=== PATIENT | female | born 1945 | race Caucasian/White ===

== ENCOUNTER 2020-04-25 09:37 | Outpatient (REF) | payer MEDICARE, OTHER, SELFPAY ==
[2020-04-25 10:35] LABS: Basophils Percent Auto 0.8 % (0-2); Eosinophils Absolute Auto 0.1 X10*3/uL (0.0-0.4); Eosinophils Percent Auto 3.2 % (0-4); Hematocrit 43.5 % (37-47); Hemoglobin 14.5 g/dl (12.0-16.0); Imm Gran Abs Auto 0.01 X10*3/uL (0.00-0.03); Imm Gran Pct Auto 0.3 % (0.0-0.4); Lymphocytes Absolute Auto 0.6 X10*3/uL (1.2-4.9); MANUAL DIFF FLAG SCAN; Mean Corpuscular HGB Conc 33.3 g/dl (31.0-35.0); Mean Corpuscular Hemoglobin 29.7 pg (27.0-33.0); Mean Corpuscular Volume 89.1 fL (80-98); Mean Platelet Volume 9.7 fL (9.4-12.3); Monocytes Absolute Auto 0.3 X10*3/uL (0.1-1.2); Monocytes Percent Auto 8.2 % (2-11); Neutrophils Absolute Auto 2.8 X10*3/uL (2.0-8.3); Neutrophils Percent Auto 72.5 % (45-73); Platelet Count 193 X10*3/uL (160-400); Red Blood Count 4.88 X10*6/uL (4.20-5.50); Red Cell Distribution Width 12.5 % (11.0-16.0); SCAN SMEAR FLAG 1; White Blood Count 3.8 X10*3/uL (4.8-10.8)
[2020-04-25 10:39] LABS: Glucose Urine UA NEG (NEG); Leukocyte Esterase Urine NEG (NEG); Nitrite Urine NEG (NEG); PH 7.5 (5.0-8.0); Urine Blood NEG (NEG); Urine Ketones NEG (NEG); Urine Protein TRACE MG/DL (NEG-TRACE)
[2020-04-25 10:44] LABS: Appearance Urine CLEAR; Color Urine YELLOW
[2020-04-25 10:51] LABS: RBC Urine 0-2 /HPF (0); Squamous Epithelial Cell Urine 2+ /LPF; WBC Urine 0-2 /HPF (0-4)
[2020-04-25 11:00] LABS: SLIDE REVIEW VERIFIED
[2020-04-25 11:17] LABS: Alanine Aminotransferase 26 U/L (0-31); Albumin Level 4.3 g/dL (3.5-5.0); Alkaline Phosphatase 55 U/L (39-117); Anion Gap 12 (12-20); Aspartate Amino Transferase 21 U/L (5-31); Bilirubin Total 0.5 mg/dL (0.0-1.0); Blood Urea Nitrogen 15 mg/dL (9-16); Calcium 8.7 mg/dL (8.4-10.2); Carbon Dioxide 29 mmol/L (22-29); Chloride 99 mmol/L (96-108); Cholesterol 156 mg/dL; Estimated Glomerular Filt Rate > 60; Glucose Fasting 123 mg/dL (60-99); HDL Cholesterol 42 mg/dL; LDL Cholesterol Calculated 61 mg/dl; Sodium 136 mmol/L (135-145); Total Protein 6.8 g/dL (6.5-8.0); Triglycerides 269 mg/dL
[2020-04-25 11:24] LABS: T4 Thyroxine 9.2 ug/dL (4.5-12.0); Thyroid Stimulating Hormone 3.58 mIU/mL (0.32-4.0); Vitamin D 25-OH Total 22.5 ng/mL (>30)
[2020-04-25 13:23] LABS: Folate 19.4 ng/mL (> or = 4.0); Vitamin B12 1078 pg/mL (200-900)
== END 2020-04-25 09:38 | disposition home or self-care (01) ==
LOC: HO.LAB 09:37
PROVIDERS: PCP Internal Medicine; Visit Provider Internal Medicine
DX: E03.9 Hypothyroidism, unspecified (principal); E78.00 Pure hypercholesterolemia, unspecified; I10 Essential (primary) hypertension; M81.0 Age-related osteoporosis without current pathological fracture; F41.9 Anxiety disorder, unspecified
CPT/HCPCS: 36415; 80053; 80061; 81001; 82306; 82607; 82746; 84436; 84443; 85025

== ENCOUNTER 2020-10-17 09:10 | Outpatient (REF) | payer MEDICARE, OTHER, SELFPAY ==
[2020-10-17 10:44] LABS: Alanine Aminotransferase 31 U/L (0-31); Albumin Level 4.3 g/dL (3.5-5.0); Alkaline Phosphatase 64 U/L (39-117); Anion Gap 12 (12-20); Aspartate Amino Transferase 21 U/L (5-31); Bilirubin Total 0.7 mg/dL (0.0-1.0); Blood Urea Nitrogen 21 mg/dL (9-16); Calcium 9.4 mg/dL (8.4-10.2); Carbon Dioxide 27 mmol/L (22-29); Chloride 104 mmol/L (96-108); Estimated Glomerular Filt Rate > 60; Glucose Random 110 mg/dL (60-115); Potassium 4.9 mmol/L (3.3-5.1); Sodium 138 mmol/L (135-145); Total Protein 6.7 g/dL (6.5-8.0)
[2020-10-17 10:59] LABS: Estimated Average Glucose 126 mg/dL
[2020-10-17 11:06] LABS: Free T4 (Free Thyroxine) 1.18 ng/dL (0.71-1.85); Thyroid Stimulating Hormone 1.15 uIU/mL (0.32-4.0)
== END 2020-10-17 09:11 | disposition home or self-care (01) ==
LOC: HO.LAB 09:10
PROVIDERS: PCP Internal Medicine; Visit Provider Internal Medicine
DX: E03.9 Hypothyroidism, unspecified (principal); R73.02 Impaired glucose tolerance (oral)
CPT/HCPCS: 36415; 80053; 83036; 84439; 84443

== ENCOUNTER 2020-11-27 13:08 | Outpatient (REF) | payer MEDICARE, OTHER, SELFPAY ==
--- NOTE | ~2020-11-27 | MM_ITS ---
EXAMINATION: MM DIAGNOSTIC DIGITAL BREAST TOMOSYNTHESIS, BILATERAL CLINICAL INFORMATION: Remote history right lumpectomy for breast cancer. Probable benign punctate round calcifications posterior central inferior right breast for follow-up. Due for yearly. COMPARISON: Mammography: 11/23/2019, 03/18/2019, 09/17/2018, 09/09/2018 (BI-RADS 0), 09/04/2017, 08/22/2016 TECHNIQUE: Digital breast tomosynthesis is performed in both the craniocaudal and mediolateral oblique views along with computer-aided detection (CAD). Synthesized 2D images are generated from the tomosynthesis. Additional views are obtained: Right MLO, magnification right CC x2, magnification right ML x2, magnification right MLO. Images repeated due to motion which persisted on additional views. Exam tailored to patient capabilities. FINDINGS: There are scattered areas of fibroglandular density (ACR BI-RADS breast composition Category b). Parenchymal pattern is similar to prior studies. There is no developing density or interval mass or architectural abnormality. The left breast is unremarkable. There are post therapy changes again seen on the right with reduced breast size and minor scarring. Scattered right calcifications are similar to prior studies with no interval increased calcifications or interval grouping or pleomorphic calcifications. Results are provided to the patient at time of visit by the technologist. MM/MM tomosynthesis diagnostic BI IMPRESSION: 1. No mammographic evidence of malignancy. 2. Post therapy changes right breast. No abnormal calcifications. ASSESSMENT: BI-RADS 2: Benign RECOMMENDATION: Routine annual mammography screening. This patient's information was entered into a reminder system with a target due date for their next mammogram.
== END 2020-11-27 13:09 | disposition home or self-care (01) ==
LOC: HO.MAMMO 13:08
PROVIDERS: PCP Internal Medicine; Visit Provider Internal Medicine
DX: R92.1 Mammographic calcification found on diagnostic imaging of breast (principal)
CPT/HCPCS: 77062; 77066

== ENCOUNTER 2021-04-29 23:47 | Emergency (ER) | payer MEDICARE, OTHER, SELFPAY ==
--- NOTE | ~2021-04-29 | CT_ITS ---
EXAMINATION: HEAD CT WITHOUT CONTRAST CERVICAL SPINE CT WITHOUT CONTRAST CLINICAL INFORMATION: Fall. COMPARISON: None. TECHNIQUE: Contiguous axial imaging of the head was performed without the administration of IV contrast. Axial multidetector volumetric images were also performed through the cervical spine without intravenous contrast. Multiplanar reconstructed images in coronal and sagittal orientations were submitted. This CT examination was performed using dose optimization techniques as appropriate, variously including the following: *Automated exposure control *Adjustment of mA and/or kV according to patient size (this includes techniques or standardized protocols for targeted exams where dose is matched to indication/reason for exam; i.e. extremities or head) *Use of iterative reconstruction technique DOSE: 861 mGy-cm FINDINGS: HEAD: There is no evidence of acute intracranial hemorrhage or territorial infarction. No abnormal mass-effect or midline shift. No extra-axial fluid collections. Buenrostro to white matter differentiation is well preserved. The ventricles are normal in size and configuration. There is no abnormal attenuation within the brain parenchyma. Calcific atherosclerosis is present within the cavernous and supraclinoid segments of the internal carotid arteries. There is a skin laceration in the right supraorbital frontal region overlying the frontal bone. No underlying fractures. The sinuses and mastoid air cells are clear. CERVICAL SPINE: Vertebral body heights are normal. No fractures of the vertebral bodies or posterior elements. Vertebral alignment is normal. No acute subluxation. There is slight chronic anterolisthesis of C3 on C4, C5-C6, and C7 on T1 correlate with the facet arthropathy at these levels. Degenerative osteophytes and sclerosis are present at the atlantodental articulation, though normal alignment is maintained. Craniocervical junction is normal. There is ankylosis of the C2-C3 and C3-C4 vertebral bodies and posterior elements. Minimal degenerative disc disease in the cervical spine is characterized by endplate and uncovertebral osteophytes primarily. There is marked multilevel facet arthropathy which is most notable on the right at C4-C5 and C7-T1 and on the left at C5-C6. And facet osteophytes produce neural foraminal encroachment on the right at C4-C5. Central canal is patent. No significant paravertebral soft tissue swelling. Atherosclerotic calcifications are present in the carotid arteries. Imaged portions of the lung apices are clear. CT/CT cervical spine wo con IMPRESSION: 1. No acute intracranial pathology. Skin laceration of the right frontal scalp. No underlying fractures. 2. No acute fracture or malalignment in the cervical spine. Marked multilevel facet arthropathy with ankylosis of C2-C3 and C3-C4.
[2021-04-29 23:51] VITALS: BP 201/95; PULSE 80; RESP 18; TEMP 36.7; O2SAT 96; BMI 22.4
[2021-04-30 00:25] VITALS: BP 203/90; PULSE 73; RESP 16; O2SAT 94
--- NOTE | 2021-04-30 00:26 | PC.NURSE ---
BP 203/90 notified
--- NOTE | 2021-04-30 00:30 | ED_ITS ---
HPI - Fall General Chief Complaint: Fall Stated Complaint: Fall/Head Lac Time Seen by Provider: 04/29/21 23:57 Source: patient Mode of arrival: ambulatory Limitations: no limitations History of Present Illness HPI Narrative: Patient comes emergency room complaining of a mechanical fall and laceration to the forehead. Patient states she got out of bed, started walking, her feet got stuck in the cats and the dog's beds on the floor, patient tripped and hit her head on the corner of a case. Patient denies loss of consciousness, patient is not on blood thinners, only takes aspirin. Patient denies neck pain, no headache. Patient only complaining of localized pain. Related Data Home Medications Medication Instructions Recorded Confirmed aspirin 81 mg tablet,delayed 81 mg PO DAILY 06/14/20 09/03/20 release (Adult Aspirin Regimen) bupropion HCl 150 mg tablet,12 hr 150 mg PO QAM 06/14/20 09/03/20 sustained-release (Wellbutrin SR) cetirizine 10 mg capsule (Allergy mg PO DAILY PRN cap 06/14/20 09/03/20 Relief (cetirizine)) ipratropium bromide 21 mcg (0.03 2 spray INTRANASAL BID-TID PRN 06/14/20 09/03/20 %) nasal spray Previous Rx's Medication Instructions Recorded Synthroid 88 mcg tablet 88 mcg PO QAM #90 tab NS 08/15/20 (levothyroxine) alendronate 70 mg tablet 70 mg PO QWEEK #12 tab 02/04/21 irbesartan 150 1 tab PO DAILY #90 tab 02/04/21 mg-hydrochlorothiazide 12.5 mg tablet propranolol 20 mg tablet 20 mg PO BID #180 tab 02/11/21 simvastatin 40 mg tablet 40 mg PO QPM #90 tab 02/11/21 Allergies Allergy/AdvReac Type Severity Reaction Status Date / Time lisinopril [LISINOPRIL] Allergy Unknown COUGH Verified 02/19/21 14:31 penicillin V Allergy Unknown stomach Verified 02/19/21 14:31 upset penicillin G [Penicillin G] AdvReac Unknown NAUSEA Verified 02/19/21 14:31 ABDOMINAL PAIN Review of Systems Review of Systems: Constitutional : No Weight loss, No Fever, No Chills, No Night Sweats, No Fatigue, No Malaise ENT/Mouth : No Hearing loss, No Ear Pain, No Nasal Congestion, No Sinus Pain, No Hoarseness, No sore throat, No Rhinorrhea, No Swallowing Difficulty Eyes: No Eye Pain, No Swelling, No Redness, No Foreign Body, No Discharge, No Vision Changes Cardiovascular : No Chest Pain, No SOB, No Dyspnea on Exertion, No Orthopnea, No Edema, No Palpitations Respiratory : No Cough, No Sputum, No Wheezing, No Smoke Exposure, No Dyspnea Gastrointestinal : No Nausea, No Vomiting, No Diarrhea, No Constipation, No abdominal Pain, No Hematochezia, No Melena Genitourinary : no irregular bleeding, No Dysuria, No Urinary Frequency, No Hematuria, No Urinary Incontinence, No Urgency, No Flank Pain, No Urinary Flow Changes, No Hesitancy Musculoskeletal : No joint pain, No Myalgias, No Joint Swelling Skin : Laceration to the forehead Neuro : No Weakness, No Numbness, No Paresthesias, No Loss of Consciousness, No Dizziness, No Headache Psych : No Anxiety/Panic, No Depression, No SI/HI/AH/VH, No Social Issues, Heme/Lymph: No Bruising, No Bleeding,No Lymphadenopathy Endocrine : No Polyuria, No Polydipsia, No Temperature Intolerance [facility] Past Medical History Medical History Anxiety Carotid stenosis Carpal tunnel syndrome COPD (chronic obstructive pulmonary disease) History of breast cancer Hypercholesterolemia Hypertension Hypothyroid Impaired glucose tolerance Osteoporosis Peripheral vascular disease Tobacco abuse Vitamin D deficiency Surgical History History of breast biopsy History of carotid endarterectomy History of cataract surgery S/P dilation and curettage Family History Family History (Updated 06/08/20 @ 14:08 by Bettie Rodriguez Gretchen) Father Hypertension Mother Stroke Diabetes Hypertension CVD (cardiovascular disease) Brother No problems noted. Sister No problems noted. Social History Social History (Updated 09/03/20 @ 17:16 by Marlena Eubanks CMA) Housing: House Alcohol intake: never Patient Tobacco Use Status: Current everyday Tobacco user Tobacco use type: Cigarette Cigarettes Per Day: 13 e-Cigarette/Vaping Use: Never Used Second Hand Smoke Exposure: No Advance Directives: No service: No Current occupational status: retired Physical Exam Vital Signs: Vital Signs: Last Vital Signs Temp 98.5 F 04/30/21 01:10 Pulse 62 04/30/21 01:42 Resp 16 04/30/21 01:42 BP 206/77 H 04/30/21 01:42 Pulse Ox 96 04/30/21 01:42 Body Mass Index 22.4 Const: Other: Appearance: Alert. Oriented X3. No acute distress. Eyes: Pupils equal, round and reactive to light. ENT: Pharynx normal. Neck: Normal inspection. Neck supple. No lymph nodes noted. No palpable step- offs, normal range of motion, no pain to palpation over cervical spine and lateral sides of neck CVS: Normal heart rate and rhythm. Pulses normal. Normal S1 and S2 Respiratory: No respiratory distress. Breath sounds normal. No Wheezing. No rales Abdomen: Soft and nontender. No rigidity. No distention. Skin: Skin warm and dry. Patient has a 4 cm laceration to the right side of the forehead Extremities: No lower extremity edema. No lower extremity edema. No Lacerations. No Rash Neuro: Oriented X 3. No motor deficit. No sensory deficit. Moving all extermities. No slurred speech. Course Course Course Narrative: Patient received 11 stitches, tolerated well the procedure. Before discharge, blood pressure was recheck, still 205 systolic. Patient was given 1 dose of p.o. labetalol, recheck blood pressure pending Patient's blood pressure 168/82, patient asymptomatic. Patient instructed to follow-up with the primary care physician and discuss any changes to her blood pressure medication Procedures Laceration Laceration 1: Site: face Side (If applicable): right Size (cm): 4 Description: stellate and irregular Depth: simple, single layer Local Anesthetic: lidocaine 1% Amount of anesthesia used (mL): 7 Pre-repair: wound explored Skin layer closed with: nylon Size (cm): 5-0 Number of sutures: 11 Technique: simple, interrupted MDM - Fall Imaging Data Head and cervical spine CT: Radiologist's impression: HEAD: There is no evidence of acute intracranial hemorrhage or territorial infarction. No abnormal mass-effect or midline shift. No extra-axial fluid collections.? Buenrostro to white matter differentiation is well preserved. The ventricles are normal in size and configuration. ? There is no abnormal attenuation within the brain parenchyma. Calcific atherosclerosis is present within the cavernous and supraclinoid segments of the internal carotid arteries. There is a skin laceration in the right supraorbital frontal region overlying the frontal bone. No underlying fractures. The sinuses and mastoid air cells are clear. CERVICAL SPINE: Vertebral body heights are normal. No fractures of the vertebral bodies or posterior elements. Vertebral alignment is normal. No acute subluxation. There is slight chronic anterolisthesis of C3 on C4, C5-C6, and C7 on T1 correlate with the facet arthropathy at these levels. Degenerative osteophytes and sclerosis are present at the atlantodental articulation, though normal alignment is maintained. Craniocervical junction is normal. There is ankylosis of the C2-C3 and C3-C4 vertebral bodies and posterior elements. Minimal degenerative disc disease in the cervical spine is characterized by endplate and uncovertebral osteophytes primarily. There is marked multilevel facet arthropathy which is most notable on the right at C4-C5 and C7-T1 and on the left at C5-C6. And facet osteophytes produce neural foraminal encroachment on the right at C4-C5. Central canal is patent. No significant paravertebral soft tissue swelling. Atherosclerotic calcifications are present in the carotid arteries. Imaged portions of the lung apices are clear. CT/CT cervical spine wo con IMPRESSION: 1. No acute intracranial pathology. Skin laceration of the right frontal scalp. No underlying fractures. 2. No acute fracture or malalignment in the cervical spine. Marked multilevel facet arthropathy with ankylosis of C2-C3 and C3-C4. Discharge Plan Discharge Clinical Impression: Hypertension Fall Qualifiers: Encounter type: initial encounter Qualified Code(s): W19.XXXA - Unspecified fall, initial encounter Laceration of face Qualifiers: Encounter type: initial encounter Qualified Code(s): S01.81XA - Laceration without foreign body of other part of head, initial encounter Patient Disposition: Home, Self-Care Instructions: Facial Laceration (ED) Additional Instructions: Your stitches need to be removed in 7-10 days. If you have any signs of infection such as redness, pus drainage, fever or chills, please return to em ergency room. Please follow-up with your primary care physician tomorrow, your blood pressure is high, you may need adjustment in your blood pressure medications. Please follow-up with your primary care physician tomorrow. If you have any worsening or new symptoms, please return to the emergency room or call 911 Prescriptions: No Action levothyroxine [Synthroid] 88 mcg tablet 88 mcg PO QAM Qty: 90 RF: 3 alendronate 70 mg tablet 70 mg PO QWEEK Qty: 12 RF: 3 irbesartan-hydrochlorothiazide 150-12.5 mg tablet 1 tab PO DAILY Qty: 90 RF: 2 propranolol 20 mg tablet 20 mg PO BID Qty: 180 RF: 2 simvastatin 40 mg tablet 40 mg PO QPM Qty: 90 RF: 2 ipratropium bromide 0.03 % spray,non-aerosol 2 spray intranasal BID-TID PRNRF: 0 Allergy Relief (cetirizine) 10 mg capsule PO DAILY PRNRF: 0 aspirin [Adult Aspirin Regimen] 81 mg tablet,delayed release (DR/EC) 81 mg PO DAILY RF: 0 bupropion HCl [Wellbutrin SR] 150 mg tablet sustained-release 12 hr 150 mg PO QAM RF: 0
[2021-04-30 01:10] VITALS: BP 204/92; PULSE 76; RESP 16; TEMP 36.9; O2SAT 96
[2021-04-30] MEDS: Lidocaine HCl 1%/Epi 1:100,000 20 ML VIAL INFILTRATI (01:10)
--- NOTE | 2021-04-30 01:12 | PC.NURSE ---
BP recheck per MD BP: 204/92 MD at bedside and aware of BP new orders to follow
[2021-04-30 01:17] VITALS: BP 204/92; PULSE 74
[2021-04-30] MEDS: Labetalol HCL 100 MG TABLET PO (01:17)
[2021-04-30 01:42] VITALS: BP 206/77; PULSE 62; RESP 16; O2SAT 96
[2021-04-30 01:51] VITALS: BP 168/82
== END 2021-04-30 01:58 | disposition home or self-care (01) ==
PROVIDERS: Emergency Provider Emergency Medicine; PCP Internal Medicine
DX: S01.81XA Laceration without foreign body of other part of head, initial encounter (principal); I10 Essential (primary) hypertension; J44.9 Chronic obstructive pulmonary disease, unspecified; W01.0XXA Fall on same level from slipping, tripping and stumbling without subsequent striking against object, initial encounter; Y93.01 Activity, walking, marching and hiking; Y92.009 Unspecified place in unspecified non-institutional (private) residence as the place of occurrence of the external cause; Y99.9 Unspecified external cause status
CPT/HCPCS: 12013; 70450; 72125; 99284

== ENCOUNTER 2021-04-30 03:31 | Emergency (ER) | payer MEDICARE, OTHER, SELFPAY ==
--- NOTE | ~2021-04-30 | CT_ITS ---
EXAMINATION: CT HEAD WITHOUT CONTRAST CLINICAL INFORMATION: Dizziness. COMPARISON: Same date at 12:34 AM TECHNIQUE: Contiguous axial imaging was performed from the skull base to vertex without intravenous administration of contrast. This CT examination was performed using dose optimization techniques as appropriate, variously including the following: *Automated exposure control *Adjustment of mA and/or kV according to patient size (this includes techniques or standardized protocols for targeted exams where dose is matched to indication/reason for exam; i.e. extremities or head) *Use of iterative reconstruction technique DLP: 577 mGy-cm FINDINGS: There is no evidence of acute intracranial hemorrhage or territorial infarction. No abnormal mass effect or midline shift is seen. [place] to white matter differentiation is well preserved. No extra-axial fluid collections are identified. The ventricles are normal in size. There is no abnormal attenuation within the brain parenchyma. Calcific atherosclerosis is again seen within the cavernous segments of the internal carotid arteries. Small skin laceration is again seen overlying the supraorbital portion of the right frontal bone. Underlying calvarium is intact. No acute underlying intracranial abnormalities. The osseous structures are normal. The mastoid air cells and visualized portions of the paranasal sinuses are well aerated. Seroma is present in the external auditory canals. CT/CT head/brain wo con IMPRESSION: No acute intracranial pathology. Right frontal scalp laceration.
[2021-04-30 03:35] VITALS: BP 104/70; BP 133/60; PULSE 58; PULSE 62; RESP 16; TEMP 36.5; O2SAT 99; BMI 22.4
--- NOTE | 2021-04-30 03:36 | ECG_ITS ---
Test Reason : DIZZINESS Blood Pressure : / mmHG Vent. Rate : 060 BPM Atrial Rate : 060 BPM P-R Int : 170 ms QRS Dur : 138 ms QT Int : 480 ms P-R-T Axes : 055 006 091 degrees QTc Int : 480 ms Normal sinus rhythm Right bundle branch block Left ventricular hypertrophy with repolarization abnormality ( R in aVL ) Abnormal ECG When compared with ECG of 20-JUL-2009 23:40, Heart rate has decreased Referred By: Iqra Mckeon Electronically Signed By:JAIME HORN MD
[2021-04-30 03:54] LABS: MANUAL DIFF FLAG NO
[2021-04-30 03:55] LABS: Basophils Percent Auto 0.3 % (0-2); Eosinophils Absolute Auto 0.1 X10*3/uL (0.0-0.4); Hematocrit 39.2 % (37.0-47.0); Hemoglobin 13.5 g/dl (12.0-16.0); Imm Gran Abs Auto 0.02 X10*3/uL (0.00-0.03); Imm Gran Pct Auto 0.3 % (0.0-0.4); Lymphocytes Absolute Auto 0.7 X10*3/uL (1.2-4.9); Lymphocytes Percent Auto 10.4 % (20-40); Mean Corpuscular HGB Conc 34.4 g/dl (31.0-35.0); Mean Corpuscular Hemoglobin 30.5 pg (27.0-33.0); Mean Corpuscular Volume 88.5 fL (80.0-98.0); Mean Platelet Volume 9.2 fL (9.4-12.3); Monocytes Absolute Auto 0.4 X10*3/uL (0.1-1.2); Monocytes Percent Auto 5.5 % (2-11); Neutrophils Percent Auto 82.5 % (45-73); Platelet Count 174 X10*3/uL (160-400); Red Blood Count 4.43 X10*6/uL (4.20-5.50); Red Cell Distribution Width 12.3 % (11.0-16.0); White Blood Count 6.9 X10*3/uL (4.8-10.8)
[2021-04-30 04:00] LABS: Prothrombin Time 11.2 SEC (9.9-13.0)
[2021-04-30 04:20] LABS: Alanine Aminotransferase 22 U/L (0-31); Albumin Level 4.1 g/dL (3.5-5.0); Alkaline Phosphatase 56 U/L (39-117); Anion Gap 15 (12-20); Aspartate Amino Transferase 26 U/L (5-31); Bilirubin Total 0.4 mg/dL (0.0-1.0); Blood Urea Nitrogen 18 mg/dL (9-16); Calcium 8.6 mg/dL (8.4-10.2); Carbon Dioxide 23 mmol/L (22-29); Chloride 98 mmol/L (96-108); Creatinine Clr Calc Pharmacy 45.3; Estimated Glomerular Filt Rate > 60; Glucose Random 195 mg/dL (60-115); Potassium 4.5 mmol/L (3.3-5.1); Sodium 131 mmol/L (135-145); Total Protein 6.6 g/dL (6.5-8.0)
--- NOTE | 2021-04-30 04:24 | ED.DIZZY ---
HPI - Dizziness General Chief Complaint: Dizziness Stated Complaint: DIZZINESS Time Seen by Provider: 04/30/21 03:36 Source: patient Mode of arrival: EMS History of Present Illness HPI Narrative: This is a 76-year-old female who is brought in by EMS after experiencing feelings of lightheadedness/dizziness while standing at the kitchen sink and , who is at bedside, states that just prior to that he noticed that she seemed to have garbled speech. Both the patient and her states that all symptoms have completely resolved but they became concerned. Significant background, patient was seen here earlier for mechanical fall, was scanned at that time, and then had repair of forehead laceration without event. At that time she had been noted to be hypertensive and was provided with an oral antihypertensive. Related Data Home Medications Medication Instructions Recorded Confirmed aspirin 81 mg tablet,delayed 81 mg PO DAILY 06/14/20 09/03/20 release (Adult Aspirin Regimen) bupropion HCl 150 mg tablet,12 hr 150 mg PO QAM 06/14/20 09/03/20 sustained-release (Wellbutrin SR) cetirizine 10 mg capsule (Allergy mg PO DAILY PRN cap 06/14/20 09/03/20 Relief (cetirizine)) ipratropium bromide 21 mcg (0.03 2 spray INTRANASAL BID-TID PRN 06/14/20 09/03/20 %) nasal spray Previous Rx's Medication Instructions Recorded Synthroid 88 mcg tablet 88 mcg PO QAM #90 tab NS 08/15/20 (levothyroxine) alendronate 70 mg tablet 70 mg PO QWEEK #12 tab 02/04/21 irbesartan 150 1 tab PO DAILY #90 tab 02/04/21 mg-hydrochlorothiazide 12.5 mg tablet propranolol 20 mg tablet 20 mg PO BID #180 tab 02/11/21 simvastatin 40 mg tablet 40 mg PO QPM #90 tab 02/11/21 Allergies Allergy/AdvReac Type Severity Reaction Status Date / Time lisinopril [LISINOPRIL] Allergy Unknown COUGH Verified 02/19/21 14:31 penicillin V Allergy Unknown stomach Verified 02/19/21 14:31 upset penicillin G [Penicillin G] AdvReac Unknown NAUSEA Verified 02/19/21 14:31 ABDOMINAL PAIN Review of Systems Review of Systems: Pertinent positives and negatives as stated in HPI 10 point review of systems PMFSH Past Medical History Source: nursing notes reviewed Medical History Anxiety Carotid stenosis Carpal tunnel syndrome COPD (chronic obstructive pulmonary disease) History of breast cancer Hypercholesterolemia Hypertension Hypothyroid Impaired glucose tolerance Osteoporosis Peripheral vascular disease Tobacco abuse Vitamin D deficiency Surgical History History of breast biopsy History of carotid endarterectomy History of cataract surgery S/P dilation and curettage Family History Family History Father Hypertension Mother Stroke Diabetes Hypertension CVD (cardiovascular disease) Brother No problems noted. Sister No problems noted. Social History Social History Housing: House Alcohol intake: never Patient Tobacco Use Status: Current everyday Tobacco user Tobacco use type: Cigarette Cigarettes Per Day: 13 e-Cigarette/Vaping Use: Never Used Second Hand Smoke Exposure: No Use of substances other than those prescribed or required for medical reasons: No Advance Directives: No Advance Directives Information Provided: No service: No Current occupational status: retired Physical Exam Vital Signs: Vital Signs: Last Vital Signs Temp 97.7 F 04/30/21 03:35 Pulse 62 04/30/21 03:35 Resp 16 04/30/21 03:35 BP 133/60 04/30/21 03:35 Pulse Ox 99 04/30/21 03:35 Body Mass Index 22.4 VITAL SIGNS: Reviewed. GENERAL: Well developed, well nourished, in no acute distress. HEAD: Normocephalic/well-approximated laceration to right forehead with minimal hematoma EYES: PERRLA, EOMI intact without pain, no nystagmus OROPHARYNX: no oral lesions noted, posterior pharynx clear, dry mucosa NECK: Supple, no adenopathy LUNGS: Normal breath sounds. No adventitious sounds or accessory muscle use. SpO2<99> CARDIOVASCULAR: Regular rate and rhythm without noted murmurs, no JVD or lower extremity edema. ABDOMEN: Soft, non-tender, non-distended with bowel sounds. MUSCULOSKELETAL: No tenderness, deformities, or effusions noted on gross inspection. EXTREMITIES: No cyanosis, clubbing or edema. SKIN: Inspection of the skin reveals no rashes NEUROLOGIC: Alert and oriented x 4. Strength and sensation to light touch were grossly intact x 4, no facial asymmetry, no pronator drift, cranial nerves 2-12 are grossly intact, cerebellar testing is without deficit Course Course Course Narrative: 76-year-old female with history and clinical presentation suggestive of symptoms likely associated with decrease in blood pressure. Patient is currently asymptomatic, nonfocal, and does not endorse any cardiopulmonary symptoms. Review of all investigations only significant for elevated troponin levels without chest pain and inconclusive EKG with baseline right bundle branch block. All results and findings discussed with the patient at bedside and she understands that we will be repeating a 2nd troponin. Repeat head CT was otherwise negative for acute findings. Signed out to Dr Glenn GILLESPIE - Dizziness Lab Data Result diagrams: 04/30/21 03:50 04/30/21 03:50 Labs: Lab Results 04/30/21 04/30/21 04/30/21 Range/Units 03:50 03:50 03:50 WBC 6.9 (4.8-10.8) X10*3/uL RBC 4.43 (4.20-5.50) X10*6/uL Hgb 13.5 (12.0-16.0) g/dl Hct 39.2 (37.0-47.0) % MCV 88.5 (80.0-98.0) fL MCH 30.5 (27.0-33.0) pg MCHC 34.4 (31.0-35.0) g/dl RDW 12.3 (11.0-16.0) % Plt Count 174 (160-400) X10*3/uL MPV 9.2 L (9.4-12.3) fL Immature Gran % (Auto) 0.3 (0.0-0.4) % Neut % (Auto) 82.5 H (45-73) % Lymph % (Auto) 10.4 L (20-40) % [place] % (Auto) 5.5 (2-11) % Eos % (Auto) 1.0 (0-4) % Baso % (Auto) 0.3 (0-2) % Lymph # (Auto) 0.7 L (1.2-4.9) X10*3/uL [place] # (Auto) 0.4 (0.1-1.2) X10*3/uL Eos # (Auto) 0.1 (0.0-0.4) X10*3/uL Baso # (Auto) 0.0 (0.0-0.2) X10*3/uL Abs Immat Gran (auto) 0.02 (0.00-0.03) X10*3/uL Absolute Neuts (auto) 5.70 (2.0-8.3) x10*3/uL Absolute Nucleated RBC 0.000 (0.0-0.012) X10*3/uL Nucleated RBC % (auto) 0.0 (0.0-0.2) /100WBC PT 11.2 (9.9-13.0) SEC INR 1.0 (0.9-1.1) Sodium 131 L (135-145) mmol/L Potassium 4.5 (3.3-5.1) mmol/L Chloride 98 (96-108) mmol/L Carbon Dioxide 23 (22-29) mmol/L Anion Gap 15 (12-20) BUN 18 H (9-16) mg/dL Creatinine 0.86 (0.5-1.4) mg/dL Estim Creat Clear Calc 45.3 Estimated GFR > 60 Random Glucose 195 H (60-115) mg/dL Calcium 8.6 D (8.4-10.2) mg/dL Total Bilirubin 0.4 (0.0-1.0) mg/dL AST 26 (5-31) U/L ALT 22 (0-31) U/L Alkaline Phosphatase 56 (39-117) U/L Troponin I High Sens (<3.5-17.0) ng/L Total Protein 6.6 (6.5-8.0) g/dL Albumin 4.1 (3.5-5.0) g/dL 04/30/21 Range/Units 03:50 WBC (4.8-10.8) X10*3/uL RBC (4.20-5.50) X10*6/uL Hgb (12.0-16.0) g/dl Hct (37.0-47.0) % MCV (80.0-98.0) fL MCH (27.0-33.0) pg MCHC (31.0-35.0) g/dl RDW (11.0-16.0) % Plt Count (160-400) X10*3/uL MPV (9.4-12.3) fL Immature Gran % (Auto) (0.0-0.4) % Neut % (Auto) (45-73) % Lymph % (Auto) (20-40) % [place] % (Auto) (2-11) % Eos % (Auto) (0-4) % Baso % (Auto) (0-2) % Lymph # (Auto) (1.2-4.9) X10*3/uL [place] # (Auto) (0.1-1.2) X10*3/uL Eos # (Auto) (0.0-0.4) X10*3/uL Baso # (Auto) (0.0-0.2) X10*3/uL Abs Immat Gran (auto) (0.00-0.03) X10*3/uL Absolute Neuts (auto) (2.0-8.3) x10*3/uL Absolute Nucleated RBC (0.0-0.012) X10*3/uL Nucleated RBC % (auto) (0.0-0.2) /100WBC PT (9.9-13.0) SEC INR (0.9-1.1) Sodium (135-145) mmol/L Potassium (3.3-5.1) mmol/L Chloride (96-108) mmol/L Carbon Dioxide (22-29) mmol/L Anion Gap (12-20) BUN (9-16) mg/dL Creatinine (0.5-1.4) mg/dL Estim Creat Clear Calc Estimated GFR Random Glucose (60-115) mg/dL Calcium (8.4-10.2) mg/dL Total Bilirubin (0.0-1.0) mg/dL AST (5-31) U/L ALT (0-31) U/L Alkaline Phosphatase (39-117) U/L Troponin I High Sens 78.8 H* (<3.5-17.0) ng/L Total Protein (6.5-8.0) g/dL Albumin (3.5-5.0) g/dL Discharge Plan Discharge Clinical Impression: Dizziness Prescriptions: No Action levothyroxine [Synthroid] 88 mcg tablet 88 mcg PO QAM Qty: 90 RF: 3 alendronate 70 mg tablet 70 mg PO QWEEK Qty: 12 RF: 3 irbesartan-hydrochlorothiazide 150-12.5 mg tablet 1 tab PO DAILY Qty: 90 RF: 2 propranolol 20 mg tablet 20 mg PO BID Qty: 180 RF: 2 simvastatin 40 mg tablet 40 mg PO QPM Qty: 90 RF: 2 ipratropium bromide 0.03 % spray,non-aerosol 2 spray intranasal BID-TID PRNRF: 0 Allergy Relief (cetirizine) 10 mg capsule PO DAILY PRNRF: 0 aspirin [Adult Aspirin Regimen] 81 mg tablet,delayed release (DR/EC) 81 mg PO DAILY RF: 0 bupropion HCl [Wellbutrin SR] 150 mg tablet sustained-release 12 hr 150 mg PO QAM RF: 0
--- NOTE | 2021-04-30 04:28 | PC.NURSE ---
pt off to CT
--- NOTE | 2021-04-30 04:37 | PC.NURSE ---
pt back from CT. pt denies any pain/dizziness/lightheadedness at this time. awaiting lab and CT results call [facility] in [place]
[2021-04-30 04:59] LABS: Troponin-I High Sensitivity 78.8 ng/L (<3.5-17.0)
[2021-04-30 06:49] VITALS: BP 121/60; PULSE 58; RESP 18; O2SAT 99
--- NOTE | 2021-04-30 07:03 | PC.NURSE ---
nad, no comlaints, no dizziness, alert, speech clear
[2021-04-30 07:16] LABS: Troponin-I High Sensitivity 70.3 ng/L (<3.5-17.0)
[2021-04-30 07:20] VITALS: BP 121/60; PULSE 58; RESP 18
[2021-04-30 07:31] LABS: Appearance Urine CLEAR; Color Urine YELLOW; Glucose Urine UA NEG (NEG); Leukocyte Esterase Urine NEG (NEG); Nitrite Urine NEG (NEG); Urine Blood NEG (NEG); Urine Ketones NEG (NEG); Urine Protein NEG (NEG-TRACE)
[2021-04-30 08:10] VITALS: BP 133/65; PULSE 69; RESP 16; O2SAT 98
== END 2021-04-30 08:17 | disposition home or self-care (01) ==
PROVIDERS: Emergency Provider Student in an Organized Health Care Education/Training Program; PCP Internal Medicine
DX: R42 Dizziness and giddiness (principal); F17.210 Nicotine dependence, cigarettes, uncomplicated; Z71.6 Tobacco abuse counseling; Z79.899 Other long term (current) drug therapy
CPT/HCPCS: 36415; 70450; 80053; 81003; 84484; 85025; 85610; 93005; 99283; 99284; 99285

== ENCOUNTER 2021-07-16 08:55 | Outpatient (REF) | payer MEDICARE, OTHER, SELFPAY ==
[2021-07-16 09:34] LABS: MANUAL DIFF FLAG NO
[2021-07-16 10:00] LABS: Basophils Percent Auto 0.5 % (0-2); Eosinophils Absolute Auto 0.1 X10*3/uL (0.0-0.4); Eosinophils Percent Auto 1.9 % (0-4); Hematocrit 44.9 % (37.0-47.0); Hemoglobin 14.9 g/dl (12.0-16.0); Imm Gran Abs Auto 0.01 X10*3/uL (0.00-0.03); Imm Gran Pct Auto 0.2 % (0.0-0.4); Lymphocytes Absolute Auto 0.6 X10*3/uL (1.2-4.9); Lymphocytes Percent Auto 14.8 % (20-40); Mean Corpuscular HGB Conc 33.2 g/dl (31.0-35.0); Mean Corpuscular Hemoglobin 29.6 pg (27.0-33.0); Mean Corpuscular Volume 89.3 fL (80.0-98.0); Mean Platelet Volume 9.2 fL (9.4-12.3); Monocytes Absolute Auto 0.3 X10*3/uL (0.1-1.2); Monocytes Percent Auto 7.6 % (2-11); Neutrophils Absolute Auto 3.2 x10*3/uL (2.0-8.3); Platelet Count 185 X10*3/uL (160-400); Red Blood Count 5.03 X10*6/uL (4.20-5.50); Red Cell Distribution Width 12.6 % (11.0-16.0); White Blood Count 4.3 X10*3/uL (4.8-10.8)
[2021-07-16 10:27] LABS: Estimated Average Glucose 131 mg/dL; Hemoglobin A1c % 6.2 %
[2021-07-16 10:31] LABS: Alanine Aminotransferase 16 U/L (0-31); Albumin Level 4.3 g/dL (3.5-5.0); Alkaline Phosphatase 58 U/L (39-117); Anion Gap 14 (12-20); Aspartate Amino Transferase 16 U/L (5-31); Bilirubin Total 0.6 mg/dL (0.0-1.0); Blood Urea Nitrogen 13 mg/dL (9-16); Carbon Dioxide 27 mmol/L (22-29); Chloride 99 mmol/L (96-108); Cholesterol 166 mg/dL; Estimated Glomerular Filt Rate > 60; Glucose Random 119 mg/dL (60-115); HDL Cholesterol 52 mg/dL; LDL Cholesterol Calculated 82 mg/dl; Potassium 4.5 mmol/L (3.3-5.1); Sodium 135 mmol/L (135-145); Triglycerides 163 mg/dL
[2021-07-16 10:57] LABS: Free T4 (Free Thyroxine) 1.24 ng/dL (0.71-1.85); Vitamin D 25-OH Total 21.8 ng/mL (>30)
[2021-07-16 11:05] LABS: Folate > 20.0 ng/mL (> or = 4.0); Vitamin B12 1181 pg/mL (200-900)
== END 2021-07-16 08:56 | disposition home or self-care (01) ==
LOC: HO.LAB 08:55
PROVIDERS: PCP Internal Medicine; Visit Provider Internal Medicine
DX: E78.00 Pure hypercholesterolemia, unspecified (principal); R73.02 Impaired glucose tolerance (oral)
CPT/HCPCS: 36415; 80053; 80061; 82306; 82607; 82746; 83036; 84439; 84443; 85025

== ENCOUNTER 2021-10-30 08:50 | Outpatient (REF) | payer MEDICARE, OTHER, SELFPAY ==
[2021-10-30 09:51] LABS: Estimated Average Glucose 140 mg/dL; Hemoglobin A1c % 6.5 %
[2021-10-30 10:06] LABS: Alanine Aminotransferase 20 U/L (0-31); Albumin Level 4.4 g/dL (3.5-5.0); Alkaline Phosphatase 59 U/L (39-117); Anion Gap 11 (12-20); Aspartate Amino Transferase 19 U/L (5-31); Bilirubin Total 0.6 mg/dL (0.0-1.0); Blood Urea Nitrogen 17 mg/dL (9-16); Calcium 10.3 mg/dL (8.4-10.2); Carbon Dioxide 30 mmol/L (22-29); Chloride 97 mmol/L (96-108); Estimated Glomerular Filt Rate > 60; Glucose Random 140 mg/dL (60-115); Sodium 133 mmol/L (135-145)
== END 2021-10-30 08:51 | disposition home or self-care (01) ==
LOC: HO.LAB 08:50
PROVIDERS: PCP Internal Medicine; Visit Provider Internal Medicine
DX: R73.02 Impaired glucose tolerance (oral) (principal)
CPT/HCPCS: 36415; 80053; 83036

== ENCOUNTER 2021-12-03 12:14 | Outpatient (REF) | payer MEDICARE, OTHER, SELFPAY ==
--- NOTE | ~2021-12-03 | MM_ITS ---
EXAMINATION: BONE DENSITOMETRY CLINICAL INDICATION: Other specified disorders of bone density and structure. COMPARISON: Previous BD dated 07/05/2019 and baseline BD dated 11/18/2006. TECHNIQUE: Using a [employer] DXA System (software version: 13.1) manufactured by [employer], dual-energy x-ray absorptiometry was performed of the lumbar spine and left hip. The images are of good technical quality. Summary results are attached. FINDINGS: AP SPINE L1-L4: Current: BMD 1.211 g/cm2, Z-score 2.3, T-score 0.3, normal, 0.9% decrease from previous, 0.5% increase from baseline (<5% change is not significant). Prior: BMD 1.222 g/cm2. Baseline: BMD 1.205 g/cm2. LEFT FEMUR, NECK: Current: BMD 0.875 g/cm2, Z-score 1.0, T-score -1.2, osteopenia. Prior: BMD 0.904 g/cm2. Baseline: BMD 0.906 g/cm2. LEFT FEMUR, TOTAL: Current: BMD 0.892 g/cm2, Z-score 1.1, T-score -0.9, normal, 0.3% decrease from previous, 7.6% decrease from baseline (<5% change is not significant). Prior: BMD 0.895 g/cm2. Baseline: BMD 0.965 g/cm2. IDENTIFIED RISK FACTORS: Menopause. HISTORY OF FRACTURE: None listed. MEDICATIONS: Calcium supplements or multivitamin, vitamin D, bisphosphonates, tobacco use (current smoker). MM/XR DEXA axial skeleton IMPRESSION: 1. DIAGNOSIS: Osteopenia based on the lowest T-score value of -1.2 in the femoral neck applying World Health Organization criteria. 2. 10-YEAR FRACTURE RISK PREDICTION, FRAX: Major osteoporotic fracture (clinical spine, forearm, hip or shoulder) 11.1%. Hip fracture 3.4%. 3. Treatment Recommendations: NOF guidelines recommend consideration for treatment in postmenopausal women and men age 50 and older presenting with the following: -A hip or vertebral (clinical or morphometric) fracture. -T-score less than or equal to -2.5 at the femoral neck or spine after appropriate evaluation to exclude secondary causes. -Low bone mass at the hip or spine and a 10-year fracture probability by FRAX of greater than or equal to 3% for hip fracture or greater than or equal to 20% for major osteoporotic fracture based on the [place] adapted WHO algorithm. 4. Other Recommendations: All treatment decisions require clinical judgment and consideration of individual patient factors, including patient preferences, comorbidities, previous drug use, risk factors not captured in the FRAX model (e.g. frailty, falls, vitamin D deficiency, increased bone turnover, interval significant decline in bone density) and possible under or overestimation of fracture risk by FRAX. Additional medical evaluation for secondary cause of low bone mineral density may be appropriate. FUTURE SCAN RECOMMENDATION: People with diagnosed cases of osteoporosis or at high risk for fracture should have regular bone mineral density tests. For patients eligible for Medicare, routine testing is allowed once every 2 years. The testing frequency can be increased to one year for patients who have rapidly progressing disease, those who are receiving or discontinuing medical therapy to restore bone mass, or have additional risk factors.
--- NOTE | ~2021-12-03 | MM_ITS ---
EXAMINATION: MM SCREENING DIGITAL BREAST TOMOSYNTHESIS, BILATERAL CLINICAL INFORMATION: Screening. Asymptomatic. Status post right lumpectomy. COMPARISON: Mammography: November 27, 2020 and studies dating back to June 07, 2012 TECHNIQUE: Digital breast tomosynthesis is performed in both the craniocaudal and mediolateral oblique views along with computer-aided detection (CAD). Synthesized 2D images are generated from the tomosynthesis. FINDINGS: There are scattered areas of fibroglandular density (ACR BI-RADS breast composition Category b). There are no new significant masses, abnormal calcifications, or other abnormalities. Chronic postsurgical changes seen within the right breast. There are benign-appearing calcifications present. MM/MM tomosynthesis screening BI IMPRESSION: There are no significant changes from prior study. ASSESSMENT: BI-RADS 2: Benign RECOMMENDATION: Routine annual mammography screening. This patient's information was entered into a reminder system with a target due date for their next mammogram.
== END 2021-12-03 12:15 | disposition home or self-care (01) ==
LOC: HO.MAMMO 12:14
PROVIDERS: PCP Internal Medicine; Visit Provider Internal Medicine
DX: Z12.31 Encounter for screening mammogram for malignant neoplasm of breast (principal); M81.0 Age-related osteoporosis without current pathological fracture; M85.80 Other specified disorders of bone density and structure, unspecified site; Z78.0 Asymptomatic menopausal state
CPT/HCPCS: 77063; 77067; 77080

== ENCOUNTER 2022-09-04 08:45 | Outpatient (REF) | payer MEDICARE, OTHER, SELFPAY ==
[2022-09-04 08:57] LABS: MANUAL DIFF FLAG NO
[2022-09-04 09:57] LABS: Basophils Percent Auto 0.4 % (0-2); Eosinophils Absolute Auto 0.1 X10*3/uL (0.0-0.4); Eosinophils Percent Auto 1.8 % (0-4); Hematocrit 44.5 % (37.0-47.0); Hemoglobin 15.2 g/dl (12.0-16.0); Lymphocytes Absolute Auto 0.6 X10*3/uL (1.2-4.9); Lymphocytes Percent Auto 12.1 % (20-40); Mean Corpuscular HGB Conc 34.2 g/dl (31.0-35.0); Mean Corpuscular Hemoglobin 29.7 pg (27.0-33.0); Mean Corpuscular Volume 87.1 fL (80.0-98.0); Mean Platelet Volume 9.6 fL (9.4-12.3); Monocytes Absolute Auto 0.4 X10*3/uL (0.1-1.2); Monocytes Percent Auto 7.9 % (2-11); Neutrophils Absolute Auto 3.5 x10*3/uL (2.0-8.3); Neutrophils Percent Auto 77.8 % (45-73); Platelet Count 192 X10*3/uL (160-400); Red Blood Count 5.11 X10*6/uL (4.20-5.50); Red Cell Distribution Width 12.5 % (11.0-16.0); White Blood Count 4.5 X10*3/uL (4.8-10.8)
[2022-09-04 11:03] LABS: Alanine Aminotransferase 17 U/L (0-31); Albumin Level 4.5 g/dL (3.5-5.0); Alkaline Phosphatase 55 U/L (39-117); Anion Gap 11 (12-20); Aspartate Amino Transferase 15 U/L (5-31); Bilirubin Total 0.9 mg/dL (0.0-1.0); Blood Urea Nitrogen 18 mg/dL (9-16); Calcium 9.2 mg/dL (8.4-10.2); Carbon Dioxide 27 mmol/L (22-29); Chloride 102 mmol/L (96-108); Cholesterol 191 mg/dL; Estimated Glomerular Filt Rate > 60; Glucose Random 133 mg/dL (60-115); HDL Cholesterol 49 mg/dL; LDL Cholesterol Calculated 105 mg/dl; Potassium 4.3 mmol/L (3.3-5.1); Sodium 136 mmol/L (135-145); Total Protein 6.8 g/dL (6.5-8.0); Triglycerides 186 mg/dL
[2022-09-04 11:14] LABS: Free T4 (Free Thyroxine) 1.17 ng/dL (0.71-1.85); Thyroid Stimulating Hormone 2.43 uIU/mL (0.32-4.0)
[2022-09-04 12:11] LABS: Folate 13.8 ng/mL (> or = 4.0); Vitamin B12 506 pg/mL (200-900)
[2022-09-04 12:51] LABS: Creatinine Urine 110.47 mg/dL; Microalbum/Creatinine Ratio Ur 11.7 ug/mg cr
[2022-09-05 05:23] LABS: HBc Num1 0.07 S/CO (0.00-0.79); HBsAGNum1 0.29 S/CO (0.00-0.99); Hepatitis B Core Antibody Nonreactive (Nonreactive); Hepatitis B Surface Antigen Negative (Negative); ~HepC Num1 0.08 S/CO (0.00-0.79); ~Hepatitis B Surface Antibody NONREACTIVE (Nonreactive); ~Hepatitis C Antibody Nonreactive (Nonreactive)
== END 2022-09-04 08:46 | disposition home or self-care (01) ==
LOC: HO.LAB 08:45
PROVIDERS: PCP Internal Medicine; Visit Provider Internal Medicine
DX: E11.65 Type 2 diabetes mellitus with hyperglycemia (principal); R79.89 Other specified abnormal findings of blood chemistry; E03.9 Hypothyroidism, unspecified; E78.00 Pure hypercholesterolemia, unspecified; Z11.59 Encounter for screening for other viral diseases; Z72.89 Other problems related to lifestyle
CPT/HCPCS: 36415; 80053; 80061; 82043; 82607; 82746; 84439; 84443; 85025; 86704; 86706; 86803; 87340

== ENCOUNTER 2022-12-09 12:56 | Outpatient (REF) | payer MEDICARE, OTHER, SELFPAY ==
--- NOTE | ~2022-12-09 | MM_ITS ---
EXAMINATION: MM SCREENING DIGITAL BREAST TOMOSYNTHESIS, BILATERAL CLINICAL INFORMATION: Screening. Asymptomatic. Remote right lumpectomy for breast cancer, 2003. COMPARISON: Multiple prior mammography exams including most recent 12/03/2021. TECHNIQUE: Digital breast tomosynthesis is performed in both the craniocaudal and mediolateral oblique views along with computer-aided detection (CAD). Synthesized 2D images are generated from the tomosynthesis. FINDINGS: There are scattered areas of fibroglandular density (ACR BI-RADS breast composition Category b). There are chronic post therapy changes on the right with reduced breast size and stable scarring. Bilateral breast parenchymal pattern is similar to prior exams. Minor asymmetries are stable. There is no developing density or significant mass or architectural abnormality. No abnormal calcifications. The axilla are unremarkable. MM/MM tomosynthesis screening BI IMPRESSION: -No mammographic evidence of malignancy. -Post therapy changes right breast. ASSESSMENT: BI-RADS 2: Benign RECOMMENDATION: Routine annual mammography screening. This patient's information was entered into a reminder system with a target due date for their next mammogram.
== END 2022-12-09 12:57 | disposition home or self-care (01) ==
LOC: HO.MAMMO 12:56
PROVIDERS: PCP Internal Medicine; Visit Provider Internal Medicine
DX: Z12.31 Encounter for screening mammogram for malignant neoplasm of breast (principal)
CPT/HCPCS: 77063; 77067

== ENCOUNTER 2022-12-11 09:47 | Outpatient (REF) | payer MEDICARE, OTHER, SELFPAY ==
[2022-12-11 10:46] LABS: Alanine Aminotransferase 15 U/L (0-31); Albumin Level 4.4 g/dL (3.5-5.0); Alkaline Phosphatase 58 U/L (39-117); Anion Gap 11 (12-20); Aspartate Amino Transferase 16 U/L (5-31); Bilirubin Total 0.8 mg/dL (0.0-1.0); Blood Urea Nitrogen 15 mg/dL (9-16); Calcium 9.6 mg/dL (8.4-10.2); Carbon Dioxide 30 mmol/L (22-29); Chloride 99 mmol/L (96-108); Cholesterol 164 mg/dL; Estimated Glomerular Filt Rate > 60; Glucose Random 135 mg/dL (60-115); HDL Cholesterol 48 mg/dL; LDL Cholesterol Calculated 83 mg/dl; Potassium 4.3 mmol/L (3.3-5.1); Sodium 136 mmol/L (135-145); Total Protein 7.2 g/dL (6.5-8.0); Triglycerides 169 mg/dL
[2022-12-11 11:35] LABS: Estimated Average Glucose 131 mg/dL; Hemoglobin A1c % 6.2 %
[2022-12-11 11:37] LABS: Creatinine Urine 80.98 mg/dL
== END 2022-12-11 09:48 | disposition home or self-care (01) ==
LOC: HO.LAB 09:47
PROVIDERS: PCP Internal Medicine; Visit Provider Internal Medicine
DX: E11.65 Type 2 diabetes mellitus with hyperglycemia (principal); E78.00 Pure hypercholesterolemia, unspecified
CPT/HCPCS: 36415; 80053; 80061; 83036

== ENCOUNTER 2023-03-30 09:13 | Outpatient (REF) | payer MEDICARE, OTHER, SELFPAY ==
[2023-03-30 10:43] LABS: Alanine Aminotransferase 15 U/L (0-31); Albumin Level 4.2 g/dL (3.5-5.0); Alkaline Phosphatase 67 U/L (39-117); Anion Gap 14 (12-20); Aspartate Amino Transferase 14 U/L (5-31); Bilirubin Total 0.7 mg/dL (0.0-1.0); Blood Urea Nitrogen 13 mg/dL (9-16); Calcium 9.9 mg/dL (8.4-10.2); Carbon Dioxide 27 mmol/L (22-29); Chloride 101 mmol/L (96-108); Cholesterol 152 mg/dL (<200); Estimated Glomerular Filt Rate > 60; Glucose Random 136 mg/dL (60-115); HDL Cholesterol 48 mg/dL (>40); LDL Cholesterol Calculated 74 mg/dL (<100); Sodium 138 mmol/L (135-145); Total Protein 6.8 g/dL (6.5-8.0); Triglycerides 153 mg/dL (<150)
[2023-03-30 11:04] LABS: Estimated Average Glucose 134 mg/dL; Hemoglobin A1c % 6.3 % (<6.0)
== END 2023-03-30 09:14 | disposition home or self-care (01) ==
LOC: HO.LAB 09:13
PROVIDERS: PCP Internal Medicine; Visit Provider Internal Medicine
DX: E11.65 Type 2 diabetes mellitus with hyperglycemia (principal); E78.00 Pure hypercholesterolemia, unspecified
CPT/HCPCS: 36415; 80053; 80061; 83036

== ENCOUNTER 2023-04-03 15:07 | Outpatient (AMB) | payer MEDICARE, OTHER, SELFPAY ==
[2023-04-03 15:25] VITALS: BP 140/64; PULSE 85; O2SAT 97; BMI 20.7
--- NOTE | 2023-04-03 15:25 | MHC.PC.OV ---
Vital Signs 04/03/23 15:25 Height 5 ft 3 in Weight 117 lb BMI 20.7 BP 140/64 H Blood Pressure Location Lt brachial Position Sitting Pulse 85 Pulse Source Pulse Oximeter Pulse Oximetry (%) 97 Oxygen Delivery Method Room Air Intake Visit Reasons: HTN, Cholesterol, DM Media Director: Not Required per policy Accompanied by: Self / Same As Patient Allergies lisinopril [LISINOPRIL] Allergy (Unknown, Verified 04/03/23 15:26) COUGH penicillin V Allergy (Unknown, Verified 04/03/23 15:26) stomach upset penicillin G [Penicillin G] Adverse Reaction (Unknown, Verified 04/03/23 15:26) NAUSEA ABDOMINAL PAIN Medication List - Last Reconciled 04/03/23 by Kandy Fisher Po, alendronate 70 mg PO QWEEK amlodipine 10 mg PO DAILY atorvastatin 20 mg PO DAILY blood pressure monitor (Blood Pressure Kit) As directed bupropion HCl (Wellbutrin XL) 150 mg PO DAILY 90 days cetirizine (Allergy Relief (cetirizine)) mg PO DAILY PRN ipratropium bromide 2 sprays intranasal BID-TID PRN irbesartan-hydrochlorothiazide 300-12.5 mg 1 tab PO DAILY 30 days propranolol 40 mg PO BID 90 days Synthroid (levothyroxine) 88 mcg PO QAM NS Tobacco use date assessed: 12/19/22 Fall risk assessment: No Falls in past year Last assessed Fall Risk: 04/03/23 Dental Screening Dental Screen Date: 04/03/23 Did you have a dental visit in the last 12 months?: No Did you have a dental problem in the last 6 months where you did not have access to dental care?: No Was dental information given to patient?: Patient has dentist HPI HTN, Cholesterol, DM HPI Details 78-year-old female smoker with diabetes mellitus controlled history of breast cancer and up-to-date with mammogram COPD hypercholesterolemia hypothyroidism hypertension and generalized anxiety disorder last seen in November 2022. Patient is here for follow-up. Bone density is up-to-date and colonoscopy is up-to-date. [facility] Medical History History of breast cancer Carotid stenosis COPD (chronic obstructive pulmonary disease) Tobacco abuse Carpal tunnel syndrome Osteoporosis Hypercholesterolemia Anxiety Vitamin D deficiency Peripheral vascular disease Hypothyroid Hypertension Surgical History History of breast biopsy S/P dilation and curettage History of carotid endarterectomy History of cataract surgery Family History Father Hypertension Mother Stroke Diabetes Hypertension CVD (cardiovascular disease) Brother No problems noted. Sister No problems noted. Social History Housing: House Alcohol intake: never Patient Tobacco Use Status: Current everyday Tobacco user Tobacco use type: Cigarette Cigarettes Per Day: 10 e-Cigarette/Vaping Use: Never Used Second Hand Smoke Exposure: No service: No Current occupational status: retired Cognitive needs: No Hearing needs: No Vision needs: Yes Questionnaire PHQ-9 Over the last 2 weeks, how often have you been bothered by any of the following problems? 1. Little interest or pleasure in doing things: not at all 2. Feeling down, depressed, or hopeless: not at all 3. Trouble falling or staying asleep, or sleeping too much: not at all 4. Feeling tired or having little energy: not at all 5. Poor appetite or overeating: not at all 6. Feeling bad about yourself - or that you are a failure or have let yourself or your family down: not at all 7. Trouble concentrating on things, such as reading the newspaper or watching television: not at all 8. Moving or speaking so slowly that other people could have noticed. Or the opposite - being so fidgety or restless that you have been moving around a lot more than usual: not at all 9. Thoughts that you would be better off or of hurting yourself in some way: not at all Total score: 0 Depression Screening Interpretation: Negative Depression Screening Done: Yes Source: Developed by Drs. Humberto Vivar, Salud Mathews, Nate Buchanan and colleagues, with an educational irene from [email or web address]. Thrive Questionnaire Date Thrive assessed: 09/11/22 AUDIT C Alcohol Use Questionnaire (AUDIT-C) 1. How often do you have a drink containing alcohol?: Never 3. How often do you have six or more drinks on one occasion?: Never Total Score: 0 HANNAH-7 AMB Questionnaire HANNAH-7 Date HANNAH - 7 assessed: 09/11/22 Source: Developed by Drs. Humberto Vivar, Salud Mathews, Nate Buchanan and colleagues, with an educational irene from [email or web address]. Physical exam (Primary Care) Vital Signs: Last Vital Signs Pulse 85 04/03/23 15:25 BP 140/64 H 04/03/23 15:25 Pulse Ox 97 04/03/23 15:25 Oxygen Delivery Method Room Air 04/03/23 15:25 BMI result Body Mass Index 20.7 Tobacco/Smoking Status: Tobacco use Status Tobacco use date assessed 12/19/22 04/03/23 15:27 Patient Tobacco Use Status Current everyday Tobacco 04/03/23 15:27 Tobacco use type Cigarette 04/03/23 15:27 e-Cigarette/Vaping Use Never Used 04/03/23 15:27 PHQ-9: PHQ-9 Score PHQ-9: Total score 0 04/03/23 16:12 Depression Screening Interpretation: Negative Thrive Assessment: Date of Thrive Assessment Date Thrive assessed 09/11/22 04/03/23 15:27 Const General: alert; No acute distress Eyes Conjunctivae: conjunctivae normal Resp Auscultation: clear to auscultation bilaterally Cardio Rate: regular rate Rhythm: regular rhythm GI Inspection: Yes normal to inspection Extrem General: Yes normal to inspection and No edema Office Procedures Flu Questionnaire Does the patient have a severe egg allergy?: No Does the patient have severe life threatening allergies?: No Does the patient have a fever or illness today?: No Has the patient ever had Guillain-[place] Syndrome?: No Has the patient ever had any past reaction to a flu shot?: No Immunizations flu vacc [id number] 6mos up(PF) 60 mcg(15 mcgx4)/0.5 mL IM syringe Performing Provider: Kandy Molina MD [facility] Administered by: LATASHA Shepard on 04/03/23 16:17 Dose Route Admin Location Dispensed Lot Number Expiration Date NDC Node [employer] 0.5 mL IM Left Deltoid 0.5 mL [id number] 12/27/23 81740-486-13 Intention Technology VIS Given Date VIS Provided VIS Publication Date 04/03/23 Single Vaccine 21 Eligibility Eligibility Date Funding Source Not [facility] Eligible 04/03/23 Private Assessment and Plan Assessment & Plan (1) Type 2 diabetes mellitus with hyperglycemia: Comment: Dr. Sheffield Code(s): E11.65 - Type 2 diabetes mellitus with hyperglycemia Plan: Decrease the amount of carbohydrate intake, pasta, bread, rice and potatoes are all sugar and that is aside from all the sweet stuff, remember that fruits are good but they are Sweet also. Hemoglobin A1c goal of less than 6.5. Patient is diet controlled (2) History of breast cancer: Comment: Two thousand four right breast mammogram December 2014, July 2015, did July 2016, August Code(s): Z85.3 - Personal history of malignant neoplasm of breast Plan: Continue to follow-up with mammogram and patient is up-to-date (3) Generalized anxiety disorder: Code(s): F41.1 - Generalized anxiety disorder Plan: Stable (4) COPD (chronic obstructive pulmonary disease): Comment: TWO THOUSAND FOURTEEN PFT MILD OBSTRUCTIVE NO RESPONSE TO BRONCHODILATOR Code(s): J44.9 - Chronic obstructive pulmonary disease, unspecified Qualifiers: COPD type: emphysema Emphysema type: unspecified Qualified Code(s): J43.9 - Emphysema, unspecified Plan: Stop smoking! (5) Tobacco abuse: Code(s): Z72.0 - Tobacco use Plan: Patient is advised to stop smoking! (6) Hypercholesterolemia: Code(s): E78.00 - Pure hypercholesterolemia, unspecified Plan: Avoid fried foods, chicken skin, eggs, butter margarine, pastries and meat. Be it pork or beef they have a lot of cholesterol LDL goal of less than 100 and triglyceride of less than 150. Patient is on atorvastatin 20 mg once a day (7) Hypothyroid: Comment: Graves disease status post iodine hypothyroidism Code(s): E03.9 - Hypothyroidism, unspecified Qualifiers: Hypothyroidism type: acquired Qualified Code(s): E03.9 - Hypothyroidism, unspecified Plan: Continue with thyroid medication (8) Hypertension: Code(s): I10 - Essential (primary) hypertension Plan: Continue with blood pressure medication. Decrease salt intake and exercise patient is taking propranolol 40 mg twice a day it irbesartan hydrochlorothiazide 300/12.5 mg once a day and amlodipine 5 mg once a day Orders: Orders Influenza [id number] Immunization Today Z23 - Encounter for immunization Medications: Changed From amlodipine 5 mg PO DAILY 90 tabs 2RF I10 - Essential (primary) hypertension To amlodipine 10 mg PO DAILY 90 tabs 2RF I10 - Essential (primary) hypertension Coding Level of Care Code Est Pt Level 4 (49118) Diagnoses Type 2 diabetes mellitus with hyperglycemia E11.65 History of breast cancer Z85.3 Generalized anxiety disorder F41.1 Pulmonary emphysema, unspecified emphysema type J43.9 COPD type: emphysema Emphysema type: unspecified Tobacco abuse Z72.0 Hypercholesterolemia E78.00 Acquired hypothyroidism E03.9 Hypothyroidism type: acquired Essential hypertension I10
== END 2023-04-03 16:19 | disposition home or self-care (01) ==
PROVIDERS: PCP Internal Medicine; Visit Provider Internal Medicine
DX: E11.65 Type 2 diabetes mellitus with hyperglycemia (principal); Z85.3 Personal history of malignant neoplasm of breast; F41.1 Generalized anxiety disorder; J43.9 Emphysema, unspecified; Z72.0 Tobacco use; E78.00 Pure hypercholesterolemia, unspecified; E03.9 Hypothyroidism, unspecified; I10 Essential (primary) hypertension; Z23 Encounter for immunization
CPT/HCPCS: 90471; 90686; 99214

== ENCOUNTER 2023-07-17 13:43 | Outpatient (AMB) | payer MEDICARE, OTHER, SELFPAY ==
--- NOTE | 2023-07-17 14:13 | A.OFFPC_ITS ---
Vital Signs 07/17/23 14:18 Height 5 ft 3 in Weight 120 lb 4 oz BMI 21.3 BP 130/62 Blood Pressure Location Lt brachial Position Sitting Pulse 55 Pulse Source Pulse Oximeter Pulse Oximetry (%) 95 Oxygen Delivery Method Room Air Intake Visit Reasons: HTN, DM Allergies lisinopril [LISINOPRIL] Allergy (Unknown, Verified 07/17/23 14:22) COUGH penicillin V Allergy (Unknown, Verified 07/17/23 14:22) stomach upset penicillin G [Penicillin G] Adverse Reaction (Unknown, Verified 07/17/23 14:22) NAUSEA ABDOMINAL PAIN Medication List - Last Reconciled 07/17/23 by Kandy Fisher Po, alendronate 70 mg PO QWEEK amlodipine 10 mg PO DAILY atorvastatin 20 mg PO DAILY blood pressure monitor (Blood Pressure Kit) As directed bupropion HCl (Wellbutrin XL) 150 mg PO DAILY 90 days cetirizine (Allergy Relief (cetirizine)) mg PO DAILY PRN ipratropium bromide 2 sprays intranasal BID-TID PRN irbesartan-hydrochlorothiazide 300-12.5 mg 1 tab PO DAILY 30 days propranolol 40 mg PO BID 90 days Synthroid (levothyroxine) 88 mcg PO QAM NS Tobacco use date assessed: 07/17/23 Fall risk assessment: No Falls in past year Last assessed Fall Risk: 07/17/23 Dental Screening Dental Screen Date: 07/17/23 Did you have a dental visit in the last 12 months?: No Did you have a dental problem in the last 6 months where you did not have access to dental care?: No Was dental information given to patient?: Patient has dentist HPI HTN, DM HPI Details 78-year-old female smoker with diabetes mellitus controlled history of breast cancer hypercholesterolemia hypertension hypothyroidism COPD coming in for follow-up last seen in March 2023. Patient's mammogram is up-to-date bone density due later this year and colonoscopy is up-to-date. [facility] Medical History History of breast cancer Carotid stenosis COPD (chronic obstructive pulmonary disease) Tobacco abuse Carpal tunnel syndrome Osteoporosis Hypercholesterolemia Anxiety Vitamin D deficiency Peripheral vascular disease Hypothyroid Hypertension Surgical History History of breast biopsy S/P dilation and curettage History of carotid endarterectomy History of cataract surgery Family History Father Hypertension Mother Stroke Diabetes Hypertension CVD (cardiovascular disease) Brother No problems noted. Sister No problems noted. Social History Housing: House Alcohol intake: never Patient Tobacco Use Status: Current everyday Tobacco user Tobacco use type: Cigarette Cigarettes Per Day: 10 e-Cigarette/Vaping Use: Never Used Second Hand Smoke Exposure: No service: No Current occupational status: retired Cognitive needs: No Hearing needs: No Vision needs: Yes Questionnaire PHQ-9 Over the last 2 weeks, how often have you been bothered by any of the following problems? 1. Little interest or pleasure in doing things: not at all 2. Feeling down, depressed, or hopeless: not at all 3. Trouble falling or staying asleep, or sleeping too much: not at all 4. Feeling tired or having little energy: not at all 5. Poor appetite or overeating: not at all 6. Feeling bad about yourself - or that you are a failure or have let yourself or your family down: not at all 7. Trouble concentrating on things, such as reading the newspaper or watching television: not at all 8. Moving or speaking so slowly that other people could have noticed. Or the opposite - being so fidgety or restless that you have been moving around a lot more than usual: not at all 9. Thoughts that you would be better off or of hurting yourself in some way: not at all Total score: 0 Depression Screening Interpretation: Negative Depression Screening Done: Yes 83609 - PHQ-9 Billing: Yes Source: Developed by Drs. Humberto Vivar, Salud Mathews, Nate Buchanan and colleagues, with an educational irene from [email or web address]. Thrive Questionnaire Date Thrive assessed: 07/17/23 I am a: Patient What is your living situation today?: I have a steady place to live Within the past 12 months, did the food you bought not last and you didn't have the money to get more?: Never true Within the past 12 months, did you worry whether your food would run out before you got money to buy more?: Never true Do you have trouble paying for medicines?: No Do you have trouble getting transportation to medical appointments?: No Do you have trouble paying your heating and electricity bill?: No Do you have trouble taking care of your child, family member or friend?: No Do you have trouble with day-to-day activities such as bathing, preparing meals, shopping, managing finances, etc.?: No Are you currently unemployed and looking for a job?: No Are you interested in more education?: No Please select the resources that you would like help with: None Currently or been in a relationship where the following occur: no concerns reported THRIVE Score: 0 AUDIT C Alcohol Use Questionnaire (AUDIT-C) 1. How often do you have a drink containing alcohol?: Never 3. How often do you have six or more drinks on one occasion?: Never Total Score: 0 HANNAH-7 AMB Questionnaire HANNAH-7 Date HANNAH - 7 assessed: 07/17/23 Feeling nervous, anxious, or on edge: 0 = Not at all Not being able to stop or control worryin = Not at all Worrying too much about different things: 0 = Not at all Trouble relaxin = Not at all Being so restless that it is hard to sit still: 0 = Not at all Becoming easily annoyed or irritable: 0 = Not at all Feeling afraid as if something awful might happen: 0 = Not at all Total HANNAH-7 score (0-4 normal; 5-9 mild; 10-14 moderate; 15-21 severe): 0 Source: Developed by Drs. Humberto Vivar, Salud Mathews, Nate Buchanan and colleagues, with an educational irene from [email or web address]. HANNAH-7 Assessment Billing HANNAH-7 Assessment Tool: HANNAH-7 Assessment 94367 Physical exam (Primary Care) Vital Signs: Last Vital Signs Pulse 55 07/17/23 14:18 BP 130/62 07/17/23 14:18 Pulse Ox 95 07/17/23 14:18 Oxygen Delivery Method Room Air 07/17/23 14:18 BMI result Body Mass Index 21.3 Tobacco/Smoking Status: Tobacco use Status Tobacco use date assessed 07/17/23 07/17/23 14:26 Patient Tobacco Use Status Current everyday Tobacco 07/17/23 14:13 Tobacco use type Cigarette 07/17/23 14:13 e-Cigarette/Vaping Use Never Used 07/17/23 14:13 PHQ-9: PHQ-9 Score PHQ-9: Total score 0 07/17/23 14:27 Depression Screening Interpretation: Negative Thrive Assessment: Date of Thrive Assessment Date Thrive assessed 07/17/23 07/17/23 14:26 Currently or been in a relationship where the following occur: no concerns reported Const General: alert; No acute distress Eyes Conjunctivae: conjunctivae normal Resp Auscultation: clear to auscultation bilaterally Cardio Rate: regular rate Rhythm: regular rhythm GI Inspection: Yes normal to inspection Extrem General: Yes normal to inspection and No edema Results AMB Hemoglobin A1c AMB Hemoglobin A1c 6.8 % Last Edit by JASIEL Rosa on 07/17/23 14:27 Results Reviewed Results Reviewed: Laboratory Last Values Hgb A1c (Clinic) 6.8 % (4.0-6.0) H 07/17/23 14:24 Assessment and Plan Assessment & Plan (1) Tobacco abuse: Code(s): Z72.0 - Tobacco use Plan: Stop smoking! (2) COPD (chronic obstructive pulmonary disease): Comment: TWO THOUSAND FOURTEEN PFT MILD OBSTRUCTIVE NO RESPONSE TO BRONCHODILATOR Code(s): J44.9 - Chronic obstructive pulmonary disease, unspecified Qualifiers: COPD type: emphysema Emphysema type: unspecified Qualified Code(s): J43.9 - Emphysema, unspecified Plan: Patient strongly advised to stop smoking! (3) History of breast cancer: Comment: Two thousand four right breast mammogram December 2014, July 2015, did July 2016, August Code(s): Z85.3 - Personal history of malignant neoplasm of breast Plan: Mammogram up-to-date (4) Type 2 diabetes mellitus with hyperglycemia: Comment: Dr. Sheffield Code(s): E11.65 - Type 2 diabetes mellitus with hyperglycemia Plan: Decrease the amount of carbohydrate intake, pasta, bread, rice and potatoes are all sugar and that is aside from all the sweet stuff, remember that fruits are good but they are Sweet also. Hemoglobin A1c goal of less than 7.0 patient is diet controlled (5) Hypertension: Code(s): I10 - Essential (primary) hypertension Plan: Continue with blood pressure medication. Decrease salt intake and exercise on amlodipine 10 mg once a day irbesartan hydrochlorothiazide 300/12.5 once a day and propranolol 40 mg twice a day (6) Hypothyroid: Comment: Graves disease status post iodine hypothyroidism Code(s): E03.9 - Hypothyroidism, unspecified Qualifiers: Hypothyroidism type: acquired Qualified Code(s): E03.9 - Hypothyroid ism, unspecified Plan: Continue with thyroid medication (7) Hypercholesterolemia: Code(s): E78.00 - Pure hypercholesterolemia, unspecified Plan: Avoid fried foods, chicken skin, eggs, butter margarine, pastries and meat. Be it pork or beef they have a lot of cholesterol LDL goal of less than 100 and triglyceride of less than 150. Patient on atorvastatin 20 mg once a (8) Frequency of micturition: Code(s): R35.0 - Frequency of micturition Orders: Orders AMB Hemoglobin A1c Today E11.65 - Type 2 diabetes mellitus with hyperglycemia Complete Blood Count Auto Diff 3 Months E78.00 - Pure hypercholesterolemia, unspecified Lipid Panel 3 Months E78.00 - Pure hypercholesterolemia, unspecified Vitamin B12 and Folate 3 Months E78.00 - Pure hypercholesterolemia, unspecified Microalbumin, Random (w Creat) 3 Months E11.65 - Type 2 diabetes mellitus with hyperglycemia, E78.00 - Pure hypercholesterolemia, unspecified Comprehensive Met. Panel 3 Months E78.00 - Pure hypercholesterolemia, unspecified Thyroid Stimulating Hormone 3 Months E78.00 - Pure hypercholesterolemia, unspecified Free T4 (Free Thyroxine) 3 Months E78.00 - Pure hypercholesterolemia, unspecified Vitamin D 25-OH Total 3 Months E78.00 - Pure hypercholesterolemia, unspecified Hemoglobin A1c 3 Months E78.00 - Pure hypercholesterolemia, unspecified Creatinine Urine 3 Months E11.65 - Type 2 diabetes mellitus with hyperglycemia, E78.00 - Pure hypercholesterolemia, unspecified UA CC w/rflx Micro + Cult Today R30.0 - Dysuria, R35.0 - Frequency of micturition US bladder Today R35.0 - Frequency of micturition Coding Level of Care Code Est Pt Level 4 (44996) Diagnoses Tobacco abuse Z72.0 Pulmonary emphysema, unspecified emphysema type J43.9 COPD type: emphysema Emphysema type: unspecified History of breast cancer Z85.3 Type 2 diabetes mellitus with hyperglycemia E11.65 Essential hypertension I10 Acquired hypothyroidism E03.9 Hypothyroidism type: acquired Hypercholesterolemia E78.00 Frequency of micturition R35.0 Additional Codes HANNAH-7 Assessment Billing - HANNAH-7 Assessment Tool: HANNAH-7 Assessment [id number] ([id number])
[2023-07-17 14:18] VITALS: BP 130/62; PULSE 55; O2SAT 95; BMI 21.3
== END 2023-07-17 15:02 | disposition home or self-care (01) ==
PROVIDERS: PCP Internal Medicine; Visit Provider Internal Medicine
DX: Z72.0 Tobacco use (principal); J43.9 Emphysema, unspecified; Z85.3 Personal history of malignant neoplasm of breast; E11.65 Type 2 diabetes mellitus with hyperglycemia; I10 Essential (primary) hypertension; E03.9 Hypothyroidism, unspecified; E78.00 Pure hypercholesterolemia, unspecified; R35.0 Frequency of micturition
CPT/HCPCS: 83036; 99214

== ENCOUNTER 2023-10-15 09:09 | Outpatient (REF) | payer MEDICARE, OTHER, SELFPAY ==
[2023-10-15 09:35] LABS: MANUAL DIFF FLAG NO
[2023-10-15 10:41] LABS: Basophils Percent Auto 0.8 % (0-2); Eosinophils Absolute Auto 0.1 X10*3/uL (0.0-0.4); Eosinophils Percent Auto 2.3 % (0-4); Hematocrit 41.3 % (37.0-47.0); Hemoglobin 14.1 g/dl (12.0-16.0); Imm Gran Abs Auto 0.01 X10*3/uL (0.00-0.03); Imm Gran Pct Auto 0.3 % (0.0-0.4); Lymphocytes Absolute Auto 0.7 X10*3/uL (1.2-4.9); Lymphocytes Percent Auto 17.6 % (20-40); Mean Corpuscular HGB Conc 34.1 g/dl (31.0-35.0); Mean Corpuscular Hemoglobin 29.9 pg (27.0-33.0); Mean Corpuscular Volume 87.5 fL (80.0-98.0); Mean Platelet Volume 9.8 fL (9.4-12.3); Monocytes Absolute Auto 0.3 X10*3/uL (0.1-1.2); Monocytes Percent Auto 8.2 % (2-11); Neutrophils Absolute Auto 2.8 x10*3/uL (2.0-8.3); Neutrophils Percent Auto 70.8 % (45-73); Platelet Count 201 X10*3/uL (160-400); Red Blood Count 4.72 X10*6/uL (4.20-5.50); Red Cell Distribution Width 12.2 % (11.0-16.0); White Blood Count 3.9 X10*3/uL (4.8-10.8)
[2023-10-15 10:52] LABS: Estimated Average Glucose 143 mg/dL; Hemoglobin A1c % 6.6 % (<6.0)
[2023-10-15 11:19] LABS: Alanine Aminotransferase 14 U/L (0-31); Albumin Level 4.4 g/dL (3.5-5.0); Alkaline Phosphatase 62 U/L (39-117); Anion Gap 9 (12-20); Aspartate Amino Transferase 14 U/L (5-31); Bilirubin Total 0.6 mg/dL (0.0-1.0); Blood Urea Nitrogen 22 mg/dL (9-16); Calcium 9.7 mg/dL (8.4-10.2); Carbon Dioxide 29 mmol/L (22-29); Chloride 103 mmol/L (96-108); Cholesterol 160 mg/dL (<200); Estimated Glomerular Filt Rate > 60; Glucose Random 133 mg/dL (60-115); HDL Cholesterol 47 mg/dL (>40); LDL Cholesterol Calculated 78 mg/dL (<100); Potassium 4.2 mmol/L (3.3-5.1); Sodium 137 mmol/L (135-145); Total Protein 7.2 g/dL (6.5-8.0); Triglycerides 176 mg/dL (<150)
[2023-10-15 11:26] LABS: Appearance Urine Clear; Color Urine Yellow; Glucose Urine UA Negative (Negative); Leukocyte Esterase Urine Small (1+) (Negative); Nitrite Urine Negative (Negative); PH 6.5 (5.0-9.0); Specific Gravity - Urine 1.015 (1.005-1.025); UMIC TRIGGER UACC YES; Urine Blood Negative (Negative); Urine Ketones Negative (Negative); Urine Protein Negative (Neg-Trace)
[2023-10-15 11:40] LABS: Free T4 (Free Thyroxine) 1.36 ng/dL (0.71-1.85); Thyroid Stimulating Hormone 1.38 uIU/mL (0.32-4.0); Vitamin D 25-OH Total 25.8 ng/mL (>30)
[2023-10-15 12:14] LABS: Creatinine Urine 100.89 mg/dL; Microalbum/Creatinine Ratio Ur 15.8 ug/mg cr (<30)
[2023-10-15 12:15] LABS: Bacteria Urine None Seen (None Seen); Hyaline Casts Urine 0-2 /LPF (0-2); RBC Urine 0-2 /HPF (0-2); Squamous Epithelial Cell Urine 0-2 /HPF (0-2); UACC Culture Trigger YES; WBC Urine 0-5 /HPF (0-5)
[2023-10-15 18:13] LABS: Folate 11.1 ng/mL (> or = 4.0); Vitamin B12 475 pg/mL (200-900)
== END 2023-10-15 09:10 | disposition home or self-care (01) ==
LOC: HO.LAB 09:09
PROVIDERS: PCP Internal Medicine; Visit Provider Internal Medicine
DX: E11.65 Type 2 diabetes mellitus with hyperglycemia (principal); E78.00 Pure hypercholesterolemia, unspecified; R30.0 Dysuria; R35.0 Frequency of micturition
CPT/HCPCS: 36415; 80053; 80061; 81001; 82043; 82306; 82570; 82607; 82746; 83036; 84439; 84443; 85025; 87086

== ENCOUNTER 2023-10-22 15:21 | Outpatient (AMB) | payer MEDICARE, OTHER, SELFPAY ==
[2023-10-22 15:23] VITALS: BP 136/60; PULSE 62; O2SAT 97; BMI 20.9
--- NOTE | 2023-10-22 15:23 | MHC.PC.OV ---
Vital Signs 10/22/23 15:23 Height 5 ft 3 in Weight 118 lb 0.2 oz BMI 20.9 BP 136/60 Blood Pressure Location Lt brachial Position Sitting Pulse 62 Pulse Source Pulse Oximeter Pulse Oximetry (%) 97 Oxygen Delivery Method Room Air Intake Visit Reasons: Diabetes mellitus hypertension Body Care Manager Required: No Allergies lisinopril [LISINOPRIL] Allergy (Unknown, Verified 10/22/23 15:24) COUGH penicillin V Allergy (Unknown, Verified 10/22/23 15:24) stomach upset penicillin G [Penicillin G] Adverse Reaction (Unknown, Verified 10/22/23 15:24) NAUSEA ABDOMINAL PAIN Tobacco use date assessed: 10/22/23 Fall risk assessment: No Falls in past year Last assessed Fall Risk: 10/22/23 Dental Screening Dental Screen Date: 07/17/23 HPI Diabetes mellitus hypertension HPI Details 78-year-old female smoker with a history of COPD history of breast cancer diabetes mellitus controlled hypertension hypothyroidism hypercholesterolemia last seen in June 2023. Patient is up-to-date with mammogram November 2022 bone density November 2021 and colonoscopy April 2015. Patient is here for follow-up. [facility] Medical History History of breast cancer Carotid stenosis COPD (chronic obstructive pulmonary disease) Tobacco abuse Carpal tunnel syndrome Osteoporosis Hypercholesterolemia Anxiety Vitamin D deficiency Peripheral vascular disease Hypothyroid Hypertension Surgical History History of breast biopsy S/P dilation and curettage History of carotid endarterectomy History of cataract surgery Family History Father Hypertension Mother Stroke Diabetes Hypertension CVD (cardiovascular disease) Brother No problems noted. Sister No problems noted. Social History Housing: House Alcohol intake: never Patient Tobacco Use Status: Current everyday Tobacco user Tobacco use type: Cigarette Cigarettes Per Day: 10 e-Cigarette/Vaping Use: Never Used Second Hand Smoke Exposure: No service: No Current occupational status: retired Cognitive needs: No Hearing needs: No Vision needs: Yes Questionnaire Thrive Questionnaire Date Thrive assessed: 07/17/23 AUDIT C Alcohol Use Questionnaire (AUDIT-C) 1. How often do you have a drink containing alcohol?: Never 3. How often do you have six or more drinks on one occasion?: Never Total Score: 0 HANNAH-7 AMB Questionnaire HANNAH-7 Date HANNAH - 7 assessed: 07/17/23 Source: Developed by Drs. Humberto Vivar, Salud Mathews, Nate Buchanan and colleagues, with an educational irene from [employer]. Physical exam (Primary Care) Vital Signs: Last Vital Signs Pulse 62 10/22/23 15:23 BP 136/60 10/22/23 15:23 Pulse Ox 97 10/22/23 15:23 Oxygen Delivery Method Room Air 10/22/23 15:23 BMI result Body Mass Index 20.9 Tobacco/Smoking Status: Tobacco use Status Tobacco use date assessed 10/22/23 10/22/23 15:24 Patient Tobacco Use Status Current everyday Tobacco 10/22/23 15:24 Tobacco use type Cigarette 10/22/23 15:24 e-Cigarette/Vaping Use Never Used 10/22/23 15:24 Thrive Assessment: Date of Thrive Assessment Date Thrive assessed 07/17/23 10/22/23 15:24 Const General: alert; No acute distress Eyes Conjunctivae: conjunctivae normal Resp Auscultation: clear to auscultation bilaterally Cardio Rate: regular rate Rhythm: regular rhythm GI Inspection: Yes normal to inspection Extrem General: Yes normal to inspection and No edema Assessment and Plan Assessment & Plan (1) Type 2 diabetes mellitus with hyperglycemia: Comment: Dr. Sheffield Code(s): E11.65 - Type 2 diabetes mellitus with hyperglycemia Plan: Decrease the amount of carbohydrate intake, pasta, bread, rice and potatoes are all sugar and that is aside from all the sweet stuff, remember that fruits are good but they are Sweet also. Hemoglobin A1c goal of less than 7.0. Patient is diet controlled (2) History of breast cancer: Comment: Two thousand four right breast mammogram December 2014, July 2015, did July 2016, August Code(s): Z85.3 - Personal history of malignant neoplasm of breast Plan: Up-to-date with mammogram (3) COPD (chronic obstructive pulmonary disease): Comment: TWO THOUSAND FOURTEEN PFT MILD OBSTRUCTIVE NO RESPONSE TO BRONCHODILATOR Code(s): J44.9 - Chronic obstructive pulmonary disease, unspecified Qualifiers: COPD type: emphysema Emphysema type: unspecified Qualified Code(s): J43.9 - Emphysema, unspecified Plan: Patient is strongly advised to stop smoking! (4) Tobacco abuse: Comment: 8(09/2023) Code(s): Z72.0 - Tobacco use Plan: Stop smoking! 8 a day still (5) Hypothyroid: Comment: Graves disease status post iodine hypothyroidism Code(s): E03.9 - Hypothyroidism, unspecified Qualifiers: Hypothyroidism type: acquired Qualified Code(s): E03.9 - Hypothyroidism, unspecified Plan: Continue with thyroid medication (6) Hypercholesterolemia: Code(s): E78.00 - Pure hypercholesterolemia, unspecified Plan: Avoid fried foods, chicken skin, eggs, butter margarine, pastries and meat. Be it pork or beef they have a lot of cholesterol LDL goal of less than 100 and triglyceride of less than 150 presently on atorvastatin 20 mg once a day (7) Hypertension: Code(s): I10 - Essential (primary) hypertension Plan: Continue with blood pressure medication. Decrease salt intake and exercise amlodipine 10 mg once a day irbesartan hydrochlorothiazide 300/12.5 mg twice a day and propranolol 40 mg twice a day Coding Level of Care Code Est Pt Level 4 (11676) Diagnoses Type 2 diabetes mellitus with hyperglycemia E11.65 History of breast cancer Z85.3 Pulmonary emphysema, unspecified emphysema type J43.9 COPD type: emphysema Emphysema type: unspecified Tobacco abuse Z72.0 Acquired hypothyroidism E03.9 Hypothyroidism type: acquired Hypercholesterolemia E78.00 Essential hypertension I10
== END 2023-10-22 15:54 | disposition home or self-care (01) ==
PROVIDERS: PCP Internal Medicine; Visit Provider Internal Medicine
DX: E11.65 Type 2 diabetes mellitus with hyperglycemia (principal); Z85.3 Personal history of malignant neoplasm of breast; J43.9 Emphysema, unspecified; Z72.0 Tobacco use; E03.9 Hypothyroidism, unspecified; E78.00 Pure hypercholesterolemia, unspecified; I10 Essential (primary) hypertension
CPT/HCPCS: 99214

== ENCOUNTER 2023-12-14 12:36 | Outpatient (REF) | payer MEDICARE, OTHER, SELFPAY ==
--- NOTE | ~2023-12-14 | MM_ITS ---
EXAMINATION: MM SCREENING DIGITAL BREAST TOMOSYNTHESIS, BILATERAL CLINICAL INFORMATION: Screening. Asymptomatic. Patient has a history of prior right breast cancer surgery in the remote past. COMPARISON: Mammography: This study is compared with prior exams dating back to 2019. TECHNIQUE: Digital breast tomosynthesis is performed in both the craniocaudal and mediolateral oblique views along with computer-aided detection (CAD). Synthesized 2D images are generated from the tomosynthesis. FINDINGS: There are scattered areas of fibroglandular density (ACR BI-RADS breast composition Category b). There are no significant masses, abnormal calcifications, or other abnormalities. There are postsurgical changes in the right breast. MM/MM tomosynthesis screening BI IMPRESSION: No mammographic evidence of malignancy. ASSESSMENT: BI-RADS BI-RADS 2 - Benign Findings RECOMMENDATION: Routine annual mammography screening. 1 year F/U This examination should not preclude the clinical evaluation of a suspicious palpable abnormality. This patient's information was entered into a reminder system with a target due date for their next mammogram.
== END 2023-12-14 12:37 | disposition home or self-care (01) ==
LOC: HO.MAMMO 12:36
PROVIDERS: PCP Internal Medicine; Visit Provider Internal Medicine
DX: Z12.31 Encounter for screening mammogram for malignant neoplasm of breast (principal)
CPT/HCPCS: 77063; 77067

== ENCOUNTER → 2023-12-14 13:00 | Outpatient (BNV) | payer MEDICARE, OTHER, SELFPAY | PROVIDERS: PCP Internal Medicine; Visit Provider Radiology Diagnostic Radiology | DX: Z12.31 Encounter for screening mammogram for malignant neoplasm of breast (principal) | CPT/HCPCS: 77063; 77067 ==

== ENCOUNTER 2024-03-24 13:46 | Outpatient (AMB) | payer MEDICARE, OTHER, SELFPAY ==
--- NOTE | 2024-03-24 13:51 | A.OFFPC_ITS ---
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 Accompanied by: Self / Same As Patient Allergies lisinopril [LISINOPRIL] Allergy (Unknown, Verified 03/24/24 13:58) COUGH penicillin V Allergy (Unknown, Verified 03/24/24 13:58) stomach upset penicillin G [Penicillin G] Adverse Reaction (Unknown, Verified 03/24/24 13:58) NAUSEA ABDOMINAL PAIN Tobacco use date assessed: 10/22/23 Fall risk assessment: No Falls in past year Last assessed Fall Risk: 03/24/24 Dental Screening Dental Screen Date: 03/24/24 Did you have a dental visit in the last 12 months?: No Did you have a dental problem in the last 6 months where you did not have access to dental care?: No Was dental information given to patient?: Patient has dentist HPI DM Follow Up HPI Details 79-year-old female smoker with a history of diabetes mellitus history of breast cancer COPD hypothyroidism hypercholesterolemia hypertension last seen in 10/17/2023. Mammogram is November 2023 bone density is due colonoscopy last done in April 2015. [facility] Medical History History of breast cancer Carotid stenosis COPD (chronic obstructive pulmonary disease) Tobacco abuse Carpal tunnel syndrome Osteoporosis Hypercholesterolemia Anxiety Vitamin D deficiency Peripheral vascular disease Hypothyroid Hypertension Surgical History History of breast biopsy S/P dilation and curettage History of carotid endarterectomy History of cataract surgery Family History (Updated 03/24/24 @ 13:52 by LATASHA Condon) Father Hypertension Mother Stroke Diabetes Hypertension CVD (cardiovascular disease) Brother No problems noted. Sister No problems noted. Social History Housing: House Alcohol intake: never Patient Tobacco Use Status: Current everyday Tobacco user Tobacco use type: Cigarette Cigarettes Per Day: 10 e-Cigarette/Vaping Use: Never Used Second Hand Smoke Exposure: No service: No Current occupational status: retired Cognitive needs: No Hearing needs: No Vision needs: Yes Questionnaire Thrive Questionnaire Date Thrive assessed: 07/17/23 Are you currently unemployed and looking for a job?: No HANNAH-7 AMB Questionnaire HANNAH-7 Date HANNAH - 7 assessed: 07/17/23 Source: Developed by Drs. Humberto Vivar, Salud Mathews, Nate Buchanan and colleagues, with an educational irene from [employer] Physical exam (Primary Care) Vital Signs: Last Vital Signs Pulse 61 03/24/24 13:52 BP 128/66 03/24/24 13:52 Pulse Ox 98 03/24/24 13:52 Oxygen Delivery Method Room Air 03/24/24 13:52 BMI result Body Mass Index 20.7 Tobacco/Smoking Status: Tobacco use Status Tobacco use date assessed 10/22/23 03/24/24 14:02 Patient Tobacco Use Status Current everyday Tobacco 03/24/24 14:02 Tobacco use type Cigarette 03/24/24 14:02 e-Cigarette/Vaping Use Never Used 03/24/24 14:02 Thrive Assessment: Date of Thrive Assessment Date Thrive assessed 07/17/23 03/24/24 14:02 Const General: alert; No acute distress Eyes Conjunctivae: conjunctivae normal Resp Auscultation: clear to auscultation bilaterally Cardio Rate: regular rate Rhythm: regular rhythm GI Inspection: Yes normal to inspection Extrem General: Yes normal to inspection and No edema Results AMB Hemoglobin A1c AMB Hemoglobin A1c 6.2 % Last Edit by LATASHA Condon on 03/24/24 14:0 4 Results Reviewed Results Reviewed: Laboratory Last Values Hgb A1c (Clinic) 6.2 % (4.0-6.0) H 03/24/24 13:51 Assessment and Plan Assessment & Plan (1) History of breast cancer: Comment: Two thousand four right breast mammogram December 2014, July 2015, did July 2016, August2023 Code(s): Z85.3 - Personal history of malignant neoplasm of breast Plan: Patient is up-to-date with mammogram (2) Type 2 diabetes mellitus with hyperglycemia: Comment: Dr. Sheffield Code(s): E11.65 - Type 2 diabetes mellitus with hyperglycemia Plan: Decrease the amount of carbohydrate intake, pasta, bread, rice and potatoes are all sugar and that is aside from all the sweet stuff, remember that fruits are good but they are Sweet also. Hemoglobin A1c goal of less than 7.0. Patient is diet control (3) COPD (chronic obstructive pulmonary disease): Comment: TWO THOUSAND FOURTEEN PFT MILD OBSTRUCTIVE NO RESPONSE TO BRONCHODILATOR Code(s): J44.9 - Chronic obstructive pulmonary disease, unspecified Qualifiers: COPD type: emphysema Emphysema type: unspecified Qualified Code(s): J43.9 - Emphysema, unspecified Plan: Patient was advised to stop smoking. (4) Tobacco abuse: Comment: 8(09/2023) Code(s): Z72.0 - Tobacco use Plan: Patient strongly advised to stop smoking (5) Hypothyroid: Comment: Graves disease status post iodine hypothyroidism Code(s): E03.9 - Hypothyroidism, unspecified Qualifiers: Hypothyroidism type: acquired Qualified Code(s): E03.9 - Hypothyroidism, unspecified Plan: Continue with present medication 09/2023 last blood work (6) Hypercholesterolemia: Code(s): E78.00 - Pure hypercholesterolemia, unspecified Plan: Avoid fried foods, chicken skin, eggs, butter margarine, pastries and meat. Be it pork or beef they have a lot of cholesterol LDL goal of less than 1 30 and triglyceride of less than 150. On atorvastatin 20 mg once a day (7) Hypertension: Code(s): I10 - Essential (primary) hypertension Plan: Continue with blood pressure medication. Decrease salt intake and exercise amlodipine 10 mg once a day irbesartan hydrochlorothiazide 300 mg/12.5 mg once a day and propranolol 40 mg twice a day (8) Age-related osteoporosis without current pathological fracture: Comment: June 2019 Code(s): M81.0 - Age-related osteoporosis without current pathological fracture Plan: Patient is reminded about bone density Orders: Orders XR DEXA axial skeleton Today M81.0 - Age-related osteoporosis without current p athological fracture Free T4 (Free Thyroxine) 6 Months - Type 2 diabetes mellitus with hyperglycemia Vitamin D 25-OH Total 6 Months - Type 2 diabetes mellitus with hyperglycemia Lipid Panel 6 Months - Type 2 diabetes mellitus with hyperglycemia, E78.00 - Pure hypercholesterolemia, unspecified UA CC w/rflx Micro + Cult 6 Months E11.65 - Type 2 diabetes mellitus with hyperglycemia, R30.0 - Dysuria AMB Hemoglobin A1c Today E11.65 - Type 2 diabetes mellitus with hyperglycemia Complete Blood Count Auto Diff 6 Months E11.65 - Type 2 diabetes mellitus with hyperglycemia Comprehensive Met. Panel 6 Months E11.65 - Type 2 diabetes mellitus with hyperglycemia Microalbumin, Random (w Creat) 6 Months E11.65 - Type 2 diabetes mellitus with hyperglycemia Hemoglobin A1c 6 Months E11. - Type 2 diabetes mellitus with hyperglycemia Vitamin B12 and Folate 6 Months E11. - Type 2 diabetes mellitus with hyperglycemia Thyroid Stimulating Hormone 6 Months E11.65 - Type 2 diabetes mellitus with hyperglycemia Creatinine Urine 6 Months E11.65 - Type 2 diabetes mellitus with hyperglycemia Coding Level of Care Code Est Pt Level 4 (15010) Diagnoses History of breast cancer Z85.3 Type 2 diabetes mellitus with hyperglycemia E11. Pulmonary emphysema, unspecified emphysema type J43.9 COPD type: emphysema Emphysema type: unspecified Tobacco abuse Z72.0 Acquired hypothyroidism E03.9 Hypothyroidism type: acquired Hypercholesterolemia E78.00 Essential hypertension I10 Age-related osteoporosis without current pathological fracture M81.0
[2024-03-24 13:52] VITALS: BP 128/66; PULSE 61; O2SAT 98; BMI 20.7
== END 2024-03-24 14:32 | disposition home or self-care (01) ==
PROVIDERS: PCP Internal Medicine; Visit Provider Internal Medicine
DX: Z85.3 Personal history of malignant neoplasm of breast (principal); E11.65 Type 2 diabetes mellitus with hyperglycemia; J43.9 Emphysema, unspecified; Z72.0 Tobacco use; E03.9 Hypothyroidism, unspecified; E78.00 Pure hypercholesterolemia, unspecified; I10 Essential (primary) hypertension; M81.0 Age-related osteoporosis without current pathological fracture

== ENCOUNTER → 2024-03-24 13:46 | Outpatient (BNVA) | payer MEDICARE, OTHER, SELFPAY | PROVIDERS: PCP Internal Medicine; Visit Provider Internal Medicine | DX: E11.65 Type 2 diabetes mellitus with hyperglycemia (principal); J43.9 Emphysema, unspecified; E03.9 Hypothyroidism, unspecified; E78.00 Pure hypercholesterolemia, unspecified; I10 Essential (primary) hypertension; M81.0 Age-related osteoporosis without current pathological fracture; Z85.3 Personal history of malignant neoplasm of breast; Z72.0 Tobacco use | CPT/HCPCS: 83036; 99212 ==

== ENCOUNTER 2024-09-15 09:26 | Outpatient (REF) | payer MEDICARE, OTHER, SELFPAY ==
[2024-09-15 09:46] LABS: MANUAL DIFF FLAG NO
[2024-09-15 10:32] LABS: Basophils Percent Auto 0.5 % (0-2); Eosinophils Absolute Auto 0.1 X10*3/uL (0.0-0.4); Eosinophils Percent Auto 1.8 % (0-4); Hematocrit 39.6 % (37.0-47.0); Hemoglobin 13.4 g/dl (12.0-16.0); Imm Gran Abs Auto 0.01 X10*3/uL (0.00-0.03); Imm Gran Pct Auto 0.3 % (0.0-0.4); Lymphocytes Absolute Auto 0.5 X10*3/uL (1.2-4.9); Lymphocytes Percent Auto 13.5 % (20-40); Mean Corpuscular HGB Conc 33.8 g/dl (31.0-35.0); Mean Corpuscular Hemoglobin 29.2 pg (27.0-33.0); Mean Corpuscular Volume 86.3 fL (80.0-98.0); Mean Platelet Volume 9.5 fL (9.4-12.3); Monocytes Absolute Auto 0.3 X10*3/uL (0.1-1.2); Neutrophils Absolute Auto 2.9 x10*3/uL (2.0-8.3); Neutrophils Percent Auto 75.9 % (45-73); Platelet Count 193 X10*3/uL (160-400); Red Blood Count 4.59 X10*6/uL (4.20-5.50); Red Cell Distribution Width 12.9 % (11.0-16.0); White Blood Count 3.9 X10*3/uL (4.8-10.8)
[2024-09-15 10:38] LABS: Estimated Average Glucose 134 mg/dL; Hemoglobin A1C 162.6602 umol/L; Hemoglobin A1c % 6.3 % (<6.0)
[2024-09-15 11:00] LABS: Appearance Urine Clear; Color Urine Yellow; Glucose Urine UA Negative (Negative); Leukocyte Esterase Urine Trace (Negative); Nitrite Urine Negative (Negative); Specific Gravity - Urine 1.015 (1.005-1.025); UMIC TRIGGER UACC YES; Urine Blood Negative (Negative); Urine Ketones Negative (Negative); Urine Protein Negative (Neg-Trace)
[2024-09-15 11:05] LABS: Bacteria Urine None Seen (None Seen); Hyaline Casts Urine 0-2 /LPF (0-2); RBC Urine 0-2 /HPF (0-2); Squamous Epithelial Cell Urine 0-2 /HPF (0-2); WBC Urine 0-5 /HPF (0-5)
[2024-09-15 11:16] LABS: Creatinine Urine 56.61 mg/dL; Microalbum/Creatinine Ratio Ur 10.5 ug/mg cr (<30)
[2024-09-15 11:18] LABS: Alanine Aminotransferase 20 U/L (0-31); Albumin Level 4.4 g/dL (3.5-5.0); Alkaline Phosphatase 56 U/L (39-117); Anion Gap 12 (12-20); Aspartate Amino Transferase 20 U/L (5-31); Bilirubin Total 0.6 mg/dL (0.0-1.0); Blood Urea Nitrogen 22 mg/dL (9-16); Calcium 9.4 mg/dL (8.4-10.2); Carbon Dioxide 26 mmol/L (22-29); Chloride 102 mmol/L (96-108); Cholesterol 144 mg/dL (<200); Estimated Glomerular Filt Rate > 60; Glucose Random 118 mg/dL (60-115); HDL Cholesterol 52 mg/dL (>40); LDL Cholesterol Calculated 64 mg/dL (<100); Potassium 4.2 mmol/L (3.3-5.1); Sodium 136 mmol/L (135-145); Total Protein 7.5 g/dL (6.5-8.0); Triglycerides 141 mg/dL (<150)
[2024-09-15 11:22] LABS: Folate 13.1 ng/mL (> or = 4.0); Vitamin B12 452 pg/mL (200-900)
[2024-09-15 11:33] LABS: Free T4 (Free Thyroxine) 1.34 ng/dL (0.71-1.85); Thyroid Stimulating Hormone 1.43 uIU/mL (0.32-4.0); Vitamin D 25-OH Total 28.2 ng/mL (>30)
== END 2024-09-15 09:27 | disposition home or self-care (01) ==
LOC: HO.LAB 09:26
PROVIDERS: PCP Internal Medicine; Visit Provider Internal Medicine
DX: E11.65 Type 2 diabetes mellitus with hyperglycemia (principal); E78.00 Pure hypercholesterolemia, unspecified; R30.0 Dysuria
CPT/HCPCS: 36415; 80053; 80061; 81001; 81003; 82043; 82306; 82570; 82607; 82746; 83036; 84439; 84443; 85025

== ENCOUNTER 2024-09-22 13:22 | Outpatient (AMB) | payer MEDICARE, OTHER, SELFPAY ==
--- NOTE | 2024-09-22 13:45 | MHC.PC.OV ---
Vital Signs 09/22/24 13:47 Height 5 ft 3 in Weight 118 lb 2 oz BMI 20.9 BP 120/66 Blood Pressure Location Lt brachial Position Sitting Pulse 57 Pulse Source Pulse Oximeter Temp 96.9 F Temp Source Temporal Artery Scan Pulse Oximetry (%) 97 Oxygen Delivery Method Room Air Intake Visit Reasons: Annual Exam/ DM Intake Note: Patient is here today for a physical. 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 per policy Accompanied by: Self / Same As Patient Allergies lisinopril [LISINOPRIL] Allergy (Unknown, Verified 09/22/24 13:53) COUGH penicillin V Allergy (Unknown, Verified 09/22/24 13:53) stomach upset penicillin G [Penicillin G] Adverse Reaction (Unknown, Verified 09/22/24 13:53) NAUSEA ABDOMINAL PAIN Medication List - Last Reconciled 09/22/24 by Viv Barriga PA-C alendronate 70 mg PO QWEEK amlodipine 10 mg PO DAILY atorvastatin 20 mg PO DAILY blood pressure monitor (Blood Pressure Kit) As directed bupropion HCl XL (Wellbutrin XL) 150 mg PO DAILY 90 days cetirizine (Allergy Relief (cetirizine)) mg PO DAILY PRN ipratropium bromide 2 sprays intranasal BID-TID PRN irbesartan-hydrochlorothiazide 300-12.5 mg 1 tab PO DAILY 30 days propranolol 40 mg PO BID 90 days Synthroid (levothyroxine) 88 mcg PO QAM NS Tobacco use date assessed: 09/22/24 Fall risk assessment: No Falls in past year Last assessed Fall Risk: 09/22/24 Dental Screening Dental Screen Date: 09/22/24 Did you have a dental visit in the last 12 months?: No Did you have a dental problem in the last 6 months where you did not have access to dental care?: No Was dental information given to patient?: Patient has dentist HPI Annual Exam/ DM HPI Details 79-year-old female with past medical history of hypertension, hypothyroid, hypercholesterolemia, tobacco abuse, COPD, generalized anxiety disorder, diabetes mellitus last seen 02/2024 coming in for annual exam. Blood pressure remains stable with no change in antihypertensive medication. Persisting tobacco use with no intent to quit despite known smoking-related risks. Diabetes is currently well managed with an A1c of 6.3, with past fluctuations noted. Reported issue with wax buildup in the ears; previously managed with professional cleaning. Trigger finger causing discomfort, with history of treatment via night splints and use of heat. Carpal tunnel persist and does have good benefit from nighttime splint however splints are old and no longer provide good benefit. lung cancer: declined Mammogram: 11/2023 repeat in 1 year Eye exam: Follows with Dr. Bowen DEXA: Overdue for bone density updated ordered today Colonoscopy: 2014 declining screening Vaccinations: Up-to-date [facility] Medical History History of breast cancer Carotid stenosis COPD (chronic obstructive pulmonary disease) Tobacco abuse Carpal tunnel syndrome Osteoporosis Hypercholesterolemia Anxiety Vitamin D deficiency Peripheral vascular disease Hypothyroid Hypertension Surgical History History of breast biopsy S/P dilation and curettage History of carotid endarterectomy History of cataract surgery Family History Father Hypertension Mother Stroke Diabetes Hypertension CVD (cardiovascular disease) Brother No problems noted. Sister No problems noted. Social History Housing: House Alcohol intake: never Patient Tobacco Use Status: Current everyday Tobacco user Tobacco use type: Cigarette Cigarette Packs Per Day: 0.5 Cigarettes Per Day: 10 e-Cigarette/Vaping Use: Never Used Second Hand Smoke Exposure: Yes service: No Current occupational status: retired Cognitive needs: No Hearing needs: No Vision needs: Yes (Glasses) Questionnaire PHQ-9 Over the last 2 weeks, how often have you been bothered by any of the following problems? 1. Little interest or pleasure in doing things: not at all 2. Feeling down, depressed, or hopeless: not at all 3. Trouble falling or staying asleep, or sleeping too much: not at all 4. Feeling tired or having little energy: not at all 5. Poor appetite or overeating: not at all 6. Feeling bad about yourself - or that you are a failure or have let yourself or your family down: not at all 7. Trouble concentrating on things, such as reading the newspaper or watching television: not at all 8. Moving or speaking so slowly that other people could have noticed. Or the opposite - being so fidgety or restless that you have been moving around a lot more than usual: not at all 9. Thoughts that you would be better off or of hurting yourself in some way: not at all Total score: 0 Depression Screening Interpretation: Negative Depression Screening Done: Yes Source: Developed by Drs. Humberto Vivar, Salud Mathews, Nate Buchanan and colleagues, with an educational irene from [employer]. Thrive Questionnaire Date Thrive assessed: 09/22/24 I am a: Patient What is your living situation today?: I have a steady place to live Within the past 12 months, did the food you bought not last and you didn't have the money to get more?: I choose not to answer this question Within the past 12 months, did you worry whether your food would run out before you got money to buy more?: I choose not to answer this question Do you have trouble paying for medicines?: No Do you have trouble getting transportation to medical appointments?: I choose not to answer this question Do you have trouble paying your heating and electricity bill?: I choose not to answer this question Do you have trouble taking care of your child, family member or friend?: No Do you have trouble with day-to-day activities such as bathing, preparing meals, shopping, managing finances, etc.?: No Are you currently unemployed and looking for a job?: No Are you interested in more education?: No Please select the resources that you would like help with: None Currently or been in a relationship where the following occur: No concerns reported THRIVE Score: 0 AUDIT C Alcohol Use Questionnaire (AUDIT-C) 1. How often do you have a drink containing alcohol?: Never Total Score: 0 HANNAH-7 AMB Questionnaire HANNAH-7 Date HANNAH - 7 assessed: 09/22/24 Feeling nervous, anxious, or on edge: 0 = Not at all Not being able to stop or control worryin = Not at all Worrying too much about different things: 0 = Not at all Trouble relaxin = Not at all Being so restless that it is hard to sit still: 0 = Not at all Becoming easily annoyed or irritable: 0 = Not at all Feeling afraid as if something awful might happen: 0 = Not at all Total HANNAH-7 score (0-4 normal; 5-9 mild; 10-14 moderate; 15-21 severe): 0 Source: Developed by Drs. Humberto Vivar, Salud Mathews, Nate Buchanan and colleagues, with an educational irene from [employer]. Review of Systems Const Denies body aches, Denies chills, Denies fever(s), Denies headache(s) and Denies poor appetite Eyes Reports no additional complaints ENT Denies dysphagia, Denies dizziness, Denies headache(s) and Denies odynophagia Card Denies chest pain, Denies syncope, Denies edema, Denies irregular heart rhythm, Denies lightheadedness and Denies dyspnea Resp Denies cough and Denies dyspnea GI Denies abdominal pain, Denies constipation, Denies dysphagia, Denies diarrhea, Denies nausea, Denies odynophagia and Denies vomiting Reports no additional complaints Musc Reports no additional complaints and Denies abnormal gait Skin/Breast Reports system reviewed and no additional complaints, except as documented Neuro Denies abnormal gait, Denies dizziness, Denies syncope and Denies headache(s) Psych Reports no additional complaints Physical exam (Primary Care) Tobacco/Smoking Status: Tobacco use Status Tobacco use date assessed 10/22/23 03/24/24 14:02 Patient Tobacco Use Status Current everyday Tobacco 03/24/24 14:02 Tobacco use type Cigarette 03/24/24 14:02 e-Cigarette/Vaping Use Never Used 03/24/24 14:02 Depression Screening Interpretation: Negative Thrive Assessment: Date of Thrive Assessment Date Thrive assessed 07/17/23 03/24/24 14:02 Currently or been in a relationship where the following occur: No concerns reported Const General: cooperative, healthy appearing, comfortable and no acute distress Orientation/consciousness: patient oriented x3 HENMT Head: Yes normocephalic Ears: hearing grossly normal bilaterally, external ears normal and Abnormal EAC present cerumen impaction bilateral General nose exam: Normal external nose present Face and sinus: Yes normal facial exam and Yes sinuses nontender Mouth: Normal oral and palatal mucosa present and tongue normal Throat: Yes posterior oropharynx normal Eyes General: appearance normal, both eyes and all related structures Conjunctivae: conjunctivae normal Pupils: Equal, round and reactive pupils present EOM: EOMs intact bilaterally and No Nystagmus present Neck Neck: Yes normal visual inspection, Yes full ROM and Yes no lymphadenopathy Chest Chest palpation & inspection: normal inspection of the chest Resp Effort & Inspection: normal respiratory effort Auscultation: clear to auscultation bilaterally, no crackles, no rales, no rhonchi, no wheezes and breath sounds present Cardio Rate: regular rate Rhythm: regular rhythm Peripheral pulses: radial pulses present and dorsalis pedis present GI Inspection: Yes normal to inspection and No Abdominal wall edema Palpation (GI): Soft to palpation, not firm and nontender Auscultation: normal bowel sounds Rectal Exam - Female: deferred General: Yes no CVA tenderness Back/Spine/Pelvis Back: no CVA tenderness Skin General skin exam: no rashes or lesions noted Neuro General: patient oriented x3 Cranial nerves: Yes Equal, round and reactive pupils present, Yes Midline tongue present, Yes Ability to bilaterally elevate shoulders present and No Nystagmus present Gait exam (Neuro): Normal gait present Extrem General: Yes normal to inspection, Yes full ROM, No no pedal edema and No edema Psych Speech and movement: Normal speech and movement present Affect: normal affect Insight: Good insight present (Psych) Judgement: Good judgement present (Psych) Coding Level of Care Code Est Pt Prev Care >65y(95015) Diagnoses Age-related osteoporosis without current pathological fracture M81.0 Type 2 diabetes mellitus with hyperglycemia E11.65 History of breast cancer Z85.3 Vitamin D deficiency E55.9 Generalized anxiety disorder F41.1 Pulmonary emphysema, unspecified emphysema type J43.9 COPD type: emphysema Emphysema type: unspecified Tobacco abuse Z72.0 Acquired hypothyroidism E03.9 Hypothyroidism type: acquired Hypercholesterolemia E78.00 Essential hypertension I10 Annual physical exam Z00.00 Carpal tunnel syndrome G56.00 Cerumen impaction H61.20 Assessment & Plan Assessment & Plan (1) Age-related osteoporosis without current pathological fracture: Comment: June 2019 Code(s): M81.0 - Age-related osteoporosis without current pathological fracture Category: Medical Plan: Patient is currently on alendronate 70 mg weekly for osteoporosis. (2) Type 2 diabetes mellitus with hyperglycemia: Comment: Dr. Sheffield Code(s): E11.65 - Type 2 diabetes mellitus with hyperglycemia Category: Medical Plan: Decrease the amount of carbohydrates such as pasta, bread, rice, and potatoes and limit the amount of sweets. Although fruits are generally healthy they should be eaten in moderation as they are still high in sugar. Hemoglobin A1c goal of less than 7%. Not currently on medical management (3) History of breast cancer: Comment: Two thousand four right breast mammogram December 2014, July 2015, did July 2016, August2023 Code(s): Z85.3 - Personal history of malignant neoplasm of breast Category: Medical Plan: 12/14/2023 most recent mammogram negative follow up in 1 year. (4) Vitamin D deficiency: Code(s): E55.9 - Vitamin D deficiency, unspecified Category: Medical Plan: Continue to monitor with serial blood work not currently on medical management at this time (5) Generalized anxiety disorder: Code(s): F41.1 - Generalized anxiety disorder Category: Medical Plan: on Wellbutrin feels this is working for her and declining additional medication or counseling at this time. (6) COPD (chronic obstructive pulmonary disease): Comment: TWO THOUSAND FOURTEEN PFT MILD OBSTRUCTIVE NO RESPONSE TO BRONCHODILATOR Code(s): J44.9 - Chronic obstructive pulmonary disease, unspecified Category: Medical Qualifiers: COPD type: emphysema Emphysema type: unspecified Qualified Code(s): J43.9 - Emphysema, unspecified Plan: Not currently on inhalers feels breathing is well managed at this time without medical management (7) Tobacco abuse: Comment: 8(09/2023) Code(s): Z72.0 - Tobacco use Category: Medical Plan: Smoking cigarettes and the use of tobacco can be harmful. We discussed the importance of stopping and options to aid in smoking cessation. On Wellbutrin declining nicotine replacement therapy (8) Hypothyroid: Comment: Graves disease status post iodine hypothyroidism Code(s): E03.9 - Hypothyroidism, unspecified Category: Medical Qualifiers: Hypothyroidism type: acquired Qualified Code(s): E03.9 - Hypothyroidism, unspecified Plan: Continue on levothyroxine 88 mcg and continue to monitor blood work. Asymptomatic at this time (9) Hypercholesterolemia: Code(s): E78.00 - Pure hypercholesterolemia, unspecified Category: Medical Plan: Avoid foods that are high in cholesterol such as red meat, fried foods, eggs and baked goods. Triglyceride goal of less than 150 and LDL goal of less than 100. Continue on atorvastatin 20 (10) Hypertension: Code(s): I10 - Essential (primary) hypertension Category: Medical Plan: Continue on current blood pressure medication. Avoid salt intake and encourage healthy diet and regular exercise. (11) Annual physical exam: Code(s): Z00.00 - Encounter for general adult medical examination without abnormal findings Category: Medical Plan: Patient is up-to-date on all recommended routine screenings and vaccinations for her age. Bone density is due and updated order placed today to be done along with annual mammogram. Declining lung cancer screening program and colonoscopy at this time. Blood work is up-to-date and has been reviewed with the patient today. Healthy diet and regular exercise is encouraged. (12) Carpal tunnel syndrome: Code(s): G56.00 - Carpal tunnel syndrome, unspecified upper limb Category: Medical Plan: Ordered for new wrist splints to be worn at nighttime. (13) Cerumen impaction: Code(s): H61.20 - Impacted cerumen, unspecified ear Category: Medical Plan: Patient having cerumen impaction bilaterally on exam today with associated symptoms. Advised patient to use Debrox drops and follow up in the office for ear flushing. Plan This note was constructed using voice recognition software. While every effort has been made to ensure accuracy and bear keeper, still areas may have been included sometimes these areas may affect the content or meeting of the given symptoms. Total time spent caring for the patient today was 30 minutes. This includes time spent before the visit reviewing the chart, time spent during the visit, and time spent after the visit and documentation. Patient was informed and verbally consented to the use of an ambient scribe for clinic note documentation during this visit. Orders: Orders XR DEXA axial skeleton Today M81.0 - Age-related osteoporosis without current pathological fracture Medications: New [right wrist splint] As directed for nighttime use 1 ea 0RF G56.00 - Carpal tunnel syndrome, unspecified upper limb [left wrist splint] As directed 1 ea 0RF G56.00 - Carpal tunnel syndrome, unspecified upper limb carbamide peroxide 6.5% (Debrox) 5 drps otic (ears) DAILY 4 days 15 mL 0RF
[2024-09-22 13:47] VITALS: BP 120/66; PULSE 57; TEMP 36.1; O2SAT 97; BMI 20.9
== END 2024-09-22 14:22 | disposition home or self-care (01) ==
LOC: HO.HMCH 13:23
PROVIDERS: PCP Internal Medicine
DX: Z00.00 Encounter for general adult medical examination without abnormal findings (principal); E11.65 Type 2 diabetes mellitus with hyperglycemia; J43.9 Emphysema, unspecified; M81.0 Age-related osteoporosis without current pathological fracture; Z85.3 Personal history of malignant neoplasm of breast; E55.9 Vitamin D deficiency, unspecified; F41.1 Generalized anxiety disorder; Z72.0 Tobacco use; E03.9 Hypothyroidism, unspecified; E78.00 Pure hypercholesterolemia, unspecified; I10 Essential (primary) hypertension; G56.00 Carpal tunnel syndrome, unspecified upper limb

== ENCOUNTER → 2024-09-22 13:22 | Outpatient (BNVA) | payer MEDICARE, OTHER, SELFPAY | PROVIDERS: PCP Internal Medicine | DX: Z00.00 Encounter for general adult medical examination without abnormal findings (principal); M81.0 Age-related osteoporosis without current pathological fracture; E11.65 Type 2 diabetes mellitus with hyperglycemia; E55.9 Vitamin D deficiency, unspecified; F41.1 Generalized anxiety disorder; J43.9 Emphysema, unspecified; E03.9 Hypothyroidism, unspecified; E78.00 Pure hypercholesterolemia, unspecified; I10 Essential (primary) hypertension; G56.00 Carpal tunnel syndrome, unspecified upper limb; H61.20 Impacted cerumen, unspecified ear; Z72.0 Tobacco use | CPT/HCPCS: 99397 ==

== ENCOUNTER 2024-12-20 12:45 | Outpatient (REF) | payer MEDICARE, OTHER, SELFPAY ==
--- NOTE | ~2024-12-20 | MM_ITS ---
EXAMINATION: MM SCREENING DIGITAL BREAST TOMOSYNTHESIS, BILATERAL CLINICAL INFORMATION: Screening. Asymptomatic. History of right breast cancer status post lumpectomy. COMPARISON: Mammography: Comparison is made with available priors TECHNIQUE: Digital breast mammography with tomosynthesis is performed in both the craniocaudal and mediolateral oblique views along with computer-aided detection (CAD). FINDINGS: The breasts are heterogeneously dense, which may obscure small masses (ACR BI-RADS breast composition Category c). Right post lumpectomy changes are stable. There are no significant masses, abnormal calcifications, or other abnormalities. MM/MM tomosynthesis screening BI IMPRESSION: No mammographic evidence of malignancy. ASSESSMENT: BI-RADS BI-RADS 2 - Benign Findings RECOMMENDATION: Routine annual mammography screening. 1 year F/U This examination should not preclude the clinical evaluation of a suspicious palpable abnormality. This patient's information was entered into a reminder system with a target due date for their next mammogram. Electronically signed by: Heather Jewell DO 12/23/2024 05:34 PM EDT
--- OUTSIDE RECORDS SUMMARY | 2024-12-20 14:19 | XMS_ITS | Patient Health Record ---
Author Organization [facility] Address [address] [place] [id number] Care Team Providers Care Tailing Hand Name Role Phone Po Kandy TEARN Primary Care Provider Humberto Tadeo Unavailable [phone] Allergies Allergen (clinical drug ingredient) Drug/Non Drug Allergy documented on EMR Reaction Allergy Type Onset Date Status Penicillin stomach discomfort Drug Allergy Active lisinopril Lisinopril Unknown Drug Allergy Activ e angiotensin-convert ing enzyme inhibitor (FN) heather inhibitors (uncoded) Unknown Allergy Active Reason For Referral No Information Medications Medication SIG (Take, Route, Frequency, Duration) Notes Start Date End Date Status Propranolol HCl 10 MG 1 tablet Orally Tw ice a day Active Ipratropium [place] 0.06 % 2 drops in ea ch nostril as needed Nasally Twice a day Active Cetirizine HCl 10 MG 1 tablet as needed Orally Once a day Active Wellbutrin SR 150 MG 1 tablet Orally onc e a day Active MoviPrep 100 GM as directed Orally a s directed for 1 dose 03/11/2015 Active Synthroid 88 MCG 1 tablet Orally Once a day Active Hyzaar 100-25 MG 1 tablet Orally Once a day Active Aspir-81 81 MG 1 tablet Orally Once a day Active Simvastatin 20 MG 1 tablet in the even ing Orally Once a day Active Immunizations Vaccine Route Administration Date Status Comme nts Flu vaccine no Preserv 3 and > Unknown 04/11/2014 Admin istered Problems Problem Type SNOMED Code ICD Code Onset Dates Problem Status W/U Status Risk Notes Problem Colon cancer screening (958123794) Colon cancer screening (V76.51) Active confirmed Problem Long-term use of aspirin therapy (V58.66) Active confirmed Problem Hypertension (00794660) Hypertension (401.9) Active confirmed Plan Of Treatment Pending Test Test Name Order Date GI BIOPSY 05/14/2015 Future Test Test Name Order Date COLONOSCOPY 03/08/2015 Insurance Providers Payer Name Payer Address Payer Phone Subscriber Number Group Number Insured Name Patient Relationship to Insured Coverage Start Date Coverage End Date MED[place]ARE [place] [address] [place] [address] [id number] TIA DIAS Self - patient is the insured [facility] INDEMNITY [address] [place] [address] [id number] TIA DIAS Self - patient is the insured Medical (General) History Medical History History ICD Code Screening colonoscopy 2004--only hyperplastic polyps, hemorrhoids, and diverticulosis Hyperlipidemia Denies [place],DM,CVA,Lung disease,renal dise ase Depression/anxiety Tremor-uses Propranolol Hypothyroidism Surgical History Surgery Date(Month/Year) Right Breast cancer in 2002 treated with lumpectomy and radiation therapy Carotid artery surgery--left side Left cataract
== END 2024-12-20 12:46 | disposition home or self-care (01) ==
LOC: HO.MAMMO 12:45
PROVIDERS: PCP Internal Medicine; Visit Provider Internal Medicine
DX: Z12.31 Encounter for screening mammogram for malignant neoplasm of breast (principal)
CPT/HCPCS: 77063; 77067

== ENCOUNTER → 2024-12-20 13:00 | Outpatient (BNV) | payer MEDICARE, OTHER, SELFPAY | PROVIDERS: PCP Internal Medicine; Visit Provider Internal Medicine | DX: Z12.31 Encounter for screening mammogram for malignant neoplasm of breast (principal) | CPT/HCPCS: 77063; 77067 ==

== ENCOUNTER 2025-03-20 09:14 | Outpatient (REF) | payer MEDICARE, OTHER, SELFPAY ==
[2025-03-20 09:37] LABS: MANUAL DIFF FLAG NO
[2025-03-20 10:31] LABS: Appearance Urine Clear; Glucose Urine UA Negative (Negative); PH 6.5 (5.0-9.0); Specific Gravity - Urine 1.010 (1.005-1.025); UMIC TRIGGER UACC YES
[2025-03-20 10:32] LABS: Hematocrit 38.3 % (37.0-47.0); Hemoglobin 12.8 g/dl (12.0-16.0); Imm Gran Abs Auto 0.02 X10*3/uL (0.00-0.03); Imm Gran Pct Auto 0.5 % (0.0-0.4); Lymphocytes Absolute Auto 0.5 X10*3/uL (1.2-4.9); Mean Corpuscular HGB Conc 33.4 g/dl (31.0-35.0); Mean Corpuscular Hemoglobin 29.0 pg (27.0-33.0); Mean Corpuscular Volume 86.8 fL (80.0-98.0); NRBC Abs Auto 0.000 X10*3/uL (0.0-0.012); NRBC Pct Auto 0.0 /100WBC (0.0-0.2); Platelet Count 200 X10*3/uL (160-400); Red Blood Count 4.41 X10*6/uL (4.20-5.50); White Blood Count 4.4 X10*3/uL (4.8-10.8)
[2025-03-20 10:41] LABS: Hemoglobin A1C 151.4341 umol/L; Total Hemoglobin (HGBA1C) 3360.0306 umol/L
--- OUTSIDE RECORDS SUMMARY | 2025-03-20 10:51 | XMS_ITS | Patient Health Record ---
Author Organization [facility] Address [address] [place] [id number] Care Team Providers Care Surgical Dressing Maker Name Role Phone Po Kandy TERAN Primary Care Provider Humberto Tadeo Unavailable [phone] Allergies Allergen (clinical drug ingredient) Drug/Non Drug [...] Orally Tw ice a day Active Ipratropium [place] 0.06 % 2 drops in ea ch [...] Status Risk Notes Problem Colon cancer screening (646454997) Colon cancer screening (V76.51) Active confirmed Problem Long-term use of aspirin therapy (V58.66) Active confirmed Problem Hypertension (79647522) Hypertension (401.9) Active confirmed Plan Of Treatment Pending Test Test Name Order Date GI BIOPSY 05/14/2015 Future Test Test Name Order Date COLONOSCOPY 03/08/2015 Insurance Providers Payer Name Payer Address Payer Phone Subscriber Number Group Number Insured Name Patient Relationship to Insured Coverage Start Date Coverage End Date [place]ARE [place] [address] [place] [address] [id number] TIA DIAS Self - patient is the insured [facility] INDEMNITY [address] [place] [address] [id number] TIA DIAS Self - patient is the insured Medical (General) History Medical History History ICD Code Screening colonoscopy 2004--only hyperplastic polyps, hemorrhoids, and diverticulosis Hyperlipidemia Denies [place],DM,CVA,Lung disease,renal dise ase Depression/anxiety Tremor-uses Propranolol Hypothyroidism Surgical History Surgery Date(Month/Year) Right Breast cancer in 2002 treated with lumpectomy and radiation therapy Carotid artery surgery--left side Left cataract
[2025-03-20 11:16] LABS: Alanine Aminotransferase 16 U/L (0-31); Albumin Level 4.6 g/dL (3.5-5.0); Alkaline Phosphatase 58 U/L (39-117); Anion Gap 10 (12-20); Aspartate Amino Transferase 23 U/L (5-31); Blood Urea Nitrogen 21 mg/dL (9-16); Calcium 9.5 mg/dL (8.4-10.2); Carbon Dioxide 27 mmol/L (22-29); Chloride 103 mmol/L (96-108); Cholesterol 160 mg/dL (<200); Estimated Glomerular Filt Rate > 60; HDL Cholesterol 50 mg/dL (>40); Potassium 3.8 mmol/L (3.3-5.1); Sodium 136 mmol/L (135-145); Total Protein 7.0 g/dL (6.5-8.0); Triglycerides 140 mg/dL (<150)
== END 2025-03-20 09:15 | disposition home or self-care (01) ==
LOC: HO.LAB 09:14
PROVIDERS: PCP Internal Medicine; Visit Provider Internal Medicine
DX: E11.65 Type 2 diabetes mellitus with hyperglycemia (principal); E78.00 Pure hypercholesterolemia, unspecified
CPT/HCPCS: 36415; 80053; 80061; 81001; 82570; 83036; 85025

== ENCOUNTER 2025-03-27 13:05 | Outpatient (AMB) | payer MEDICARE, OTHER, SELFPAY ==
--- NOTE | 2025-03-27 13:25 | MHC.PC.OV ---
Vital Signs 03/27/25 13:26 Height 5 ft 3 in Weight 109 lb BMI 19.3 BP 122/62 Blood Pressure Location Lt brachial Position Sitting Pulse 52 Pulse Source Pulse Oximeter Pulse Oximetry (%) 97 Oxygen Delivery Method Room Air Intake Visit Reasons: 6 mo f/u Allergies lisinopril (LISINOPRIL) Allergy (Unknown, Verified 03/27/25 13:26) COUGH penicillin V Allergy (Unknown, Verified 03/27/25 13:26) stomach upset penicillin G (Penicillin G) Adverse Reaction (Unknown, Verified 03/27/25 13:26) NAUSEA ABDOMINAL PAIN Medication List - Last Reconciled 03/27/25 by Kandy Fisher Po, alendronate 70 mg PO QWEEK amlodipine 10 mg PO DAILY atorvastatin 20 mg PO DAILY blood pressure monitor (Blood Pressure Kit) As directed bupropion HCl XL (Wellbutrin XL) 150 mg PO DAILY 90 days carbamide peroxide 6.5% (Debrox) 5 drps otic (ears) DAILY 4 days cetirizine (Allergy Relief (cetirizine)) mg PO DAILY PRN ipratropium bromide 2 sprays intranasal BID-TID PRN irbesartan-hydrochlorothiazide 300-12.5 mg 1 tab PO DAILY 30 days [left wrist splint As directed] propranolol 40 mg PO BID 90 days [right wrist splint As directed for nighttime use ] Synthroid (levothyroxine) 88 mcg PO QAM NS Tobacco use date assessed: 09/22/24 Fall risk assessment: No Falls in past year Last assessed Fall Risk: 03/27/25 Dental Screening Dental Screen Date: 09/22/24 [facility] Medical History (Updated 09/22/24 @ 14:43 by Viv Barriga PA-C) History of breast cancer Carotid stenosis COPD (chronic obstructive pulmonary disease) Tobacco abuse Carpal tunnel syndrome Osteoporosis Hypercholesterolemia Anxiety Vitamin D deficiency Peripheral vascular disease Hypothyroid Hypertension Surgical History History of breast biopsy S/P dilation and curettage History of carotid endarterectomy History of cataract surgery Family History Father Hypertension Mother Stroke Diabetes Hypertension CVD (cardiovascular disease) Brother No problems noted. Sister No problems noted. Social History Housing: House Alcohol intake: never Patient Tobacco Use Status: Current everyday Tobacco user Tobacco use type: Cigarette Cigarette Packs Per Day: 0.5 Cigarettes Per Day: 10 e-Cigarette/Vaping Use: Never Used Second Hand Smoke Exposure: Yes service: No Current occupational status: retired Cognitive needs: No Hearing needs: No Vision needs: Yes (Glasses) Questionnaire Thrive Questionnaire Date Thrive assessed: 09/22/24 I am a: Patient What is your living situation today?: I have a steady place to live Within the past 12 months, did the food you bought not last and you didn't have the money to get more?: I choose not to answer this question Within the past 12 months, did you worry whether your food would run out before you got money to buy more?: I choose not to answer this question Do you have trouble paying for medicines?: No Do you have trouble getting transportation to medical appointments?: I choose not to answer this question Do you have trouble paying your heating and electricity bill?: I choose not to answer this question Do you have trouble taking care of your child, family member or friend?: No Do you have trouble with day-to-day activities such as bathing, preparing meals, shopping, managing finances, etc.?: No Are you currently unemployed and looking for a job?: No Are you interested in more education?: No Please select the resources that you would like help with: None Currently or been in a relationship where the following occur: No concerns reported THRIVE Score: 0 AUDIT C Alcohol Use Questionnaire (AUDIT-C) 2. How many drinks containing alcohol do you have on a typical day when you are drinking?: 1 or 2 3. How often do you have six or more drinks on one occasion?: Never Total Score: 0 HANNAH-7 AMB Questionnaire HANNAH-7 Date HANNAH - 7 assessed: 09/22/24 Source: Developed by Drs. Humberto Vivar, Salud Mathews, Nate Buchanan and colleagues, with an educational irene from [employer]. Physical exam (Primary Care) Vital Signs: Last Vital Signs Pulse 52 03/27/25 13:26 BP 122/62 03/27/25 13:26 Pulse Ox 97 03/27/25 13:26 Oxygen Delivery Method Room Air 03/27/25 13:26 BMI result Body Mass Index 19.3 Tobacco/Smoking Status: Tobacco use Status Tobacco use date assessed 09/22/24 03/27/25 13:27 Patient Tobacco Use Status Current everyday Tobacco 03/27/25 13:27 Tobacco use type Cigarette 03/27/25 13:27 e-Cigarette/Vaping Use Never Used 03/27/25 13:27 Thrive Assessment: Date of Thrive Assessment Date Thrive assessed 09/22/24 03/27/25 13:27 Currently or been in a relationship where the following occur: No concerns reported Const General: alert; No acute distress Eyes Conjunctivae: conjunctivae normal Resp Auscultation: clear to auscultation bilaterally Cardio Rate: regular rate Rhythm: regular rhythm GI Inspection: Yes normal to inspection Extrem General: Yes normal to inspection and No edema Coding Level of Care Code Est Pt Level 4 (70166) Complex EM visit Add On G2211 Diagnoses Type 2 diabetes mellitus with hyperglycemia E11.65 Essential hypertension I10 Hypercholesterolemia E78.00 Acquired hypothyroidism E03.9 Hypothyroidism type: acquired Generalized anxiety disorder F41.1 Age-related osteoporosis without current pathological fracture M81.0 History of breast cancer Z85.3 Pulmonary emphysema, unspecified emphysema type J43.9 COPD type: emphysema Emphysema type: unspecified Tobacco abuse Z72.0 Assessment & Plan Assessment & Plan (1) Type 2 diabetes mellitus with hyperglycemia: Comment: Dr. Sheffield Code(s): E11.65 - Type 2 diabetes mellitus with hyperglycemia Category: Medical Plan: Decrease the amount of carbohydrate intake, pasta, bread, rice and potatoes are all sugar and that is aside from all the sweet stuff, remember that fruits are good but they are Sweet also. Hemoglobin A1c goal of less than 7.0. Patient is diet controlled (2) Hypertension: Code(s): I10 - Essential (primary) hypertension Category: Medical Plan: Continue with blood pressure medication. Decrease salt intake and exercise on propranolol 20 40 mg twice a day amlodipine 10 mg once a day (3) Hypercholesterolemia: Code(s): E78.00 - Pure hypercholesterolemia, unspecified Category: Medical Plan: Avoid fried foods, chicken skin, eggs, butter margarine, pastries and meat. Be it pork or beef they have a lot of cholesterol patient takes atorvastatin 20 mg once a day (4) Hypothyroid: Comment: Graves disease status post iodine hypothyroidism Code(s): E03.9 - Hypothyroidism, unspecified Category: Medical Qualifiers: Hypothyroidism type: acquired Qualified Code(s): E03.9 - Hypothyroidism, unspecified Plan: Continue with thyroid medication August 2024 last blood work (5) Generalized anxiety disorder: Code(s): F41.1 - Generalized anxiety disorder Category: Medical Plan: Continue with Wellbutrin. (6) Age-related osteoporosis without current pathological fracture: Comment: June 2019 Code(s): M81.0 - Age-related osteoporosis without current pathological fracture Category: Medical Plan: Discussed about the last bone density. And will request for no one on alendronate 70 mg once a week (7) History of breast cancer: Comment: Two thousand four right breast mammogram December 2014, July 2015, did July 2016, August2023 Code(s): Z85.3 - Personal history of malignant neoplasm of breast Category: Medical Plan: Continue with regular mammograms. (8) COPD (chronic obstructive pulmonary disease): Comment: TWO THOUSAND FOURTEEN PFT MILD OBSTRUCTIVE NO RESPONSE TO BRONCHODILATOR Code(s): J44.9 - Chronic obstructive pulmonary disease, unspecified Category: Medical Qualifiers: COPD type: emphysema Emphysema type: unspecified Qualified Code(s): J43.9 - Emphysema, unspecified Plan: Patient is strongly advised to stop smoking! (9) Tobacco abuse: Comment: 8(09/2023) Code(s): Z72.0 - Tobacco use Category: Medical Plan: Stop smoking! Plan History of Present Illness The patient is an 80-year-old female presenting with recent weight loss. She has unintentionally lost 9 pounds since her last visit in August, where her weight was recorded at 118 pounds. The patient reports a good appetite and denies any intentional weight loss, nausea, vomiting, or changes in taste. The patient has a history of hypercholesterolemia, hypothyroidism, hypertension, COPD, diabetes mellitus, and osteoporosis. Her last bone density test was in November 2021, and she is currently on alendronate 70 mg once a week. She also has a history of breast cancer, with her last mammogram conducted in November 2024. The patient's last blood work in February showed mild leukopenia, normal blood count, and no anemia. Her renal function is normal, blood sugar was 111 mg/dL, and hemoglobin A1c is stable at 6.3%. Liver function tests were normal, LDL cholesterol was 82 mg/dL, and thyroid function was normal in August. Health Maintenance - Bone density screening requested due to osteoporosis history - Regular mammograms advised due to history of breast cancer - Smoking cessation strongly advised - Blood work scheduled for six months from now - Chest x-ray ordered to investigate weight loss Social History - Smoking: Patient smokes approximately three cigarettes per day and is advised to quit. Review of Systems - General: Reports unintentional weight loss of 9 pounds. Denies fever, nausea, or vomiting. - Respiratory: Denies significant cough, reports sinus issues and occasional nasal discharge. - Genitourinary: Reports nocturia, waking up 3-6 times per night to urinate. Physical Exam Results - Labs: Mild leukopenia, normal blood count, no anemia, normal renal function, blood sugar 111 mg/dL, hemoglobin A1c 6.3%, normal liver function, LDL cholesterol 82 mg/dL, normal thyroid function, no proteinuria. Plan Patient was informed and verbally consented to the use of an ambient scribe for clinic note documentation during this visit. 1. Weight Loss The patient has experienced an unintentional weight loss of 9 pounds since August. A chest x-ray has been ordered to rule out any underlying conditions contributing to this weight loss. Blood work is scheduled for six months from now to monitor any changes. 2. Hypercholesterolemia The patient's LDL cholesterol is currently at 82 mg/dL, which is within the desired range. The patient is advised to continue atorvastatin 20 mg once daily. 3. Hypothyroidism The patient's thyroid function is normal as of the last test in August. The patient is advised to continue with her current thyroid medication. 4. Hypertension The patient is currently on propranolol 40 mg twice daily and amlodipine 10 mg once daily for blood pressure management. 5. Chronic Obstructive Pulmonary Disease (Copd) The patient is strongly advised to cease smoking to manage her COPD effectively. 6. Diabetes Mellitus The patient's hemoglobin A1c is stable at 6.3%, and she is currently managing her diabetes through diet control. The goal is to maintain an A1c of less than 7.0%. 7. Osteoporosis The patient is on alendronate 70 mg once a week for osteoporosis management. A new bone density test has been requested to assess the current status. 8. History Of Breast Cancer The patient is advised to continue with regular mammograms as part of her ongoing surveillance. Discussion Notes During the visit, I discussed the patient's recent weight loss and the importance of ruling out any underlying conditions with a chest x-ray. We reviewed her current medications and health maintenance strategies, including the continuation of atorvastatin for hypercholesterolemia and alendronate for osteoporosis. I emphasized the need for smoking cessation to improve her COPD and overall health. Patient Instructions - Schedule and complete a chest x-ray to investigate weight loss. - Continue taking atorvastatin 20 mg daily for cholesterol management. - Continue taking alendronate 70 mg weekly for osteoporosis. - Quit smoking to improve lung health and overall well-being. - Follow up with regular mammograms and bone density tests as scheduled. Orders: Orders Comprehensive Met. Panel 6 Months E78.00 - Pure hypercholesterolemia, unspecified Lipid Panel 6 Months E78.00 - Pure hypercholesterolemia, unspecified Thyroid Stimulating Hormone 6 Months E78.00 - Pure hypercholesterolemia, unspecified UA CC w/rflx Micro + Cult 6 Months E78.00 - Pure hypercholesterolemia, unspecified, R30.0 - Dysuria Vitamin B12 and Folate 6 Months E78.00 - Pure hypercholesterolemia, unspecified XR chest 2V Today Z72.0 - Tobacco use Complete Blood Count Auto Diff 6 Months E78.00 - Pure hypercholesterolemia, unspecified Creatinine Urine 6 Months E11.65 - Type 2 diabetes mellitus with hyperglycemia, E78.00 - Pure hypercholesterolemia, unspecified Free T4 (Free Thyroxine) 6 Months E78.00 - Pure hypercholesterolemia, unspecified Hemoglobin A1c 6 Months E78.00 - Pure hypercholesterolemia, unspecified Vitamin D 25-OH Total 6 Months E78.00 - Pure hypercholesterolemia, unspecified XR DEXA axial skeleton Today M81.0 - Age-related osteoporosis without current pathological fracture
[2025-03-27 13:26] VITALS: BP 122/62; PULSE 52; O2SAT 97; BMI 19.3
--- OUTSIDE RECORDS SUMMARY | 2025-03-27 14:23 | XMS_ITS | Patient Health Record ---
Author Organization [facility] Address [address] [place] [address] Care Team Providers Care Oracle Adf Consultant Name Role Phone Po Kandy TERAN Primary Care Provider Humberto Tadeo Unavailable [phone] Allergies Allergen (clinical drug ingredient) Drug/Non Drug [...] Orally Tw ice a day Active Ipratropium [place] 0.06 % 2 drops in ea ch [...] Status Risk Notes Problem Colon cancer screening (861762657) Colon cancer screening (V76.51) Active confirmed Problem Long-term use of aspirin therapy (V58.66) Active confirmed Problem Hypertension (49687237) Hypertension (401.9) Active confirmed Plan Of Treatment Pending Test Test Name Order Date GI BIOPSY 05/14/2015 Future Test Test Name Order Date COLONOSCOPY 03/08/2015 Insurance Providers Payer Name Payer Address Payer Phone Subscriber Number Group Number Insured Name Patient Relationship to Insured Coverage Start Date Coverage End Date MEDICARE OF [place] [address] [place] [address] [id number] TIA DIAS Self - patient is the insured [facility] INDEMNITY [address] [place] [address] [id number] TIA DIAS Self - patient is the insured Medical (General) History Medical History History ICD Code Screening colonoscopy 2004--only hyperplastic polyps, hemorrhoids, and diverticulosis Hyperlipidemia Denies [place],DM,CVA,Lung disease,renal dise ase Depression/anxiety Tremor-uses Propranolol Hypothyroidism Surgical History Surgery Date(Month/Year) Right Breast cancer in 2002 treated with lumpectomy and radiation therapy Carotid artery surgery--left side Left cataract
== END 2025-03-27 14:12 | disposition home or self-care (01) ==
LOC: HO.HMCH 13:06
PROVIDERS: PCP Internal Medicine; Visit Provider Internal Medicine
DX: E11.65 Type 2 diabetes mellitus with hyperglycemia (principal); J43.9 Emphysema, unspecified; I10 Essential (primary) hypertension; E78.00 Pure hypercholesterolemia, unspecified; E03.9 Hypothyroidism, unspecified; F41.1 Generalized anxiety disorder; M81.0 Age-related osteoporosis without current pathological fracture; Z85.3 Personal history of malignant neoplasm of breast; Z72.0 Tobacco use

== ENCOUNTER 2025-03-27 13:05 | Outpatient (REF) | payer MEDICARE, OTHER, SELFPAY ==
--- NOTE | ~2025-03-27 | XR_ITS ---
EXAMINATION: XR CHEST CLINICAL INFORMATION: Z72.0 - Tobacco use COMPARISON: No prior chest radiograph. CT chest low dose 06/10/2016 TECHNIQUE: 2 views of the chest were obtained. FINDINGS: The cardiac size is normal. There are mitral annular calcifications. Mediastinal and hilar contours appear normal. Aortic mural calcifications. The lungs are diffusely hyperaerated, however clear bilaterally. There is no pneumothorax or pleural effusion. There is no focal osseous or soft tissue abnormality. There are mild degenerative changes in the shoulder joints and throughout the spine. XR/XR chest 2V IMPRESSION: Hyperaerated lungs without evidence of active disease. Electronically signed by: Adolph Farrell MD 03/27/2025 03:00 PM EDT RP
== END 2025-03-27 13:06 | disposition home or self-care (01) ==
LOC: HO.XRAY 13:05
PROVIDERS: PCP Internal Medicine; Visit Provider Internal Medicine
DX: E11.65 Type 2 diabetes mellitus with hyperglycemia (principal); F17.210 Nicotine dependence, cigarettes, uncomplicated; I10 Essential (primary) hypertension; E78.00 Pure hypercholesterolemia, unspecified; E03.9 Hypothyroidism, unspecified; F41.1 Generalized anxiety disorder; M81.0 Age-related osteoporosis without current pathological fracture; J43.9 Emphysema, unspecified; Z53.8 Procedure and treatment not carried out for other reasons; Z79.890 Hormone replacement therapy; Z79.899 Other long term (current) drug therapy
CPT/HCPCS: 71046; 99212

== ENCOUNTER → 2025-03-27 14:27 | Outpatient (BNV) | payer MEDICARE, OTHER, SELFPAY | PROVIDERS: PCP Internal Medicine; Visit Provider Radiology Diagnostic Radiology | DX: I34.81 Nonrheumatic mitral (valve) annulus calcification (principal); J98.4 Other disorders of lung | CPT/HCPCS: 71046 ==

== ENCOUNTER 2025-06-09 12:28 | Outpatient (REF) | payer MEDICARE, OTHER, SELFPAY ==
--- NOTE | ~2025-06-09 | MM_ITS ---
EXAMINATION: DXA BONE DENSITY AXIAL HISTORY: M81.0 - Age-related osteoporosis without current pathological fracture TECHNIQUE: [facility] [employer] Dual energy absorptiometry (DEXA) of the lumbar spine, total left hip, and femoral neck was performed. COMPARISON: Comparison is made with the prior examination dated 12/03/2021. FINDINGS: The bone mineral density of the lumbar spine is 1.231 g/cm2, corresponding to a T-score of 0.4, and a Z-score of 2.6. This is indicative of normal bone mineral density. This represents a BMD change of 1.7% compared to the prior exam. This is not statistically significant. The bone mineral density of the left total hip is 0.817 g/cm2, corresponding to a T-score of -1.5, and a Z-score of 0.8. This is indicative of osteopenia. This represents a BMD change of -8.4% compared to the prior exam. This is statistically significant. The bone mineral density of the left femoral neck is 0.865 g/cm2, corresponding to a T-score of -1.2, and a Z-score of 1.2. This is indicative of osteopenia. This represents a BMD change of -1.1% compared to the prior exam. FRACTURE RISK: The FRAX index suggests a ten year probability of major osteoporotic fracture of 11.6%, and of hip fracture 4.2%. MM/XR DEXA axial skeleton IMPRESSION: Based on bone mineral density, and according to World Health Organization (WHO) criteria, the diagnosis is consistent with osteopenia. Statistically, 68% of repeat scans fall within 1 SD (+/- 0.010 g/cm2 for AP spine L1-L4) and 1 SD (+/- 0.012 g/cm2 for femur total) FRAX is a trademark of the [employer]'s [employer], a World Health Organization (WHO) Collaborating Center. Electronically signed by: Humberto Cohen MD 06/09/2025 01:14 PM [facility]
== END 2025-06-09 12:29 | disposition home or self-care (01) ==
LOC: HO.MAMMO 12:28
PROVIDERS: Visit Provider Internal Medicine
DX: M81.0 Age-related osteoporosis without current pathological fracture (principal)
CPT/HCPCS: 77080

== ENCOUNTER → 2025-06-09 13:00 | Outpatient (BNV) | payer MEDICARE, OTHER, SELFPAY | PROVIDERS: Visit Provider Radiology Diagnostic Radiology | DX: E28.39 Other primary ovarian failure (principal) | CPT/HCPCS: 77080 ==